=== PATIENT | male | born 1950 | race Caucasian/White ===

== ENCOUNTER 2018-05-20 12:26 | Emergency (ER) | payer OTHER, SELFPAY ==
[2018-05-20] VITALS (52 sets, daily range): BP systolic 132–174; BP diastolic 68–87; PULSE 98–113; RESP 8–27; TEMP 36.6; O2SAT 89–98
--- NOTE | 2018-05-20 13:03 | NUR.NOTE ---
Pt. placed on cardiac and resp. monitor.
--- NOTE | 2018-05-20 13:17 | DI.RAD_ITS ---
SYMPTOM/DIAGNOSIS: COUGH, ? PNEUMONIA PA AND LATERAL CHEST: The heart is at the upper limits of normal in size. The lungs are grossly clear. No pleural effusion is seen. CONCLUSION: No evidence of acute disease.
--- NOTE | 2018-05-20 13:20 | W.ED.GENAD ---
Discharge Plan Disposition Patient Disposition: AGAINST MEDICAL ADVICE Condition: Stable Discharge Details Chief Complaint: RespSymp Clinical Impression: Cough, Hypoxia, Bronchitis Primary Care Provider: None,None ED Provider: Angie Bey Home Meds and New Rx's Prescriptions: New prednisone 50 mg tablet 50 mg PO DAILY 5 Days Qty: 5 RF: 0 metoprolol succinate 50 mg tablet extended release 24 hr 50 mg PO DAILY Qty: 30 RF: 0 Continue atorvastatin 10 mg Tablet 10 mg PO DAILY RF: 0 aspirin 325 mg Tablet 325 mg PO DAILY RF: 0 metoprolol succinate 50 mg Tablet Extended Release 24 Hr 50 mg PO DAILY RF: 0 warfarin 7.5 mg Tablet 1 tab PO DAILY RF: 0 clopidogrel 75 mg Tablet 75 mg PO DAILY RF: 0 amlodipine-benazepril 5-10 mg Capsule 1 tab PO DAILY RF: 0 Discharge Instructions Instructions: Acute Bronchitis (ED), Acute Cough (ED) Additional Instructions: Your INR level is low and you may still have a pulmonary embolism as the CT chest was not adequate today. Please take 10 mg Coumadin tomorrow morning and return to the emergency department tomorrow morning for a repeat CT scan of your chest. Return immediately to the emergency department at anytime for any worsening or new concerning symptoms Discharge Data Discharge Physician: Angie Bey Medical Decision Making 67-year-old male with a history of protein S deficiency on Coumadin, hypertension and 2 cardiac stents who presents with fevers, dry cough with chest congestion and occasional shortness of breath for the past 9 days. Denies any chest pain. States he has been taking his Coumadin regularly. Patient also states that he has missed 4 days of metoprolol over the past few days due to running out. Blood pressure mildly hypertensive, heart rate 100s-110s. Oxygen saturation 93% on room air. Normal respiratory rate and temperature. Patient able to speak in full sentences and appears nontoxic. Diffuse wheezing and rhonchi throughout. No lower extremity edema. Differential diagnosis includes bronchitis, pneumonia. Less likely ACS as no complaint of chest pain and more c/o cough. Pt refusing labs and agreeable to CXR, EKG. 1420 --patient denies any relief after first neb treatment. Will order another neb treatment. Patient now admits to missing a few doses of his Coumadin. I am concerned about a possible pulmonary embolism. Pt now agreeable to workup. Will place an IV, bolus IV fluids, labs, CT chest. EKG notes a rate of 111, sinus tachycardia, no acute ST elevation or depression, QTC 457, QRS 82. 1700 --labs reviewed and note normal white blood cell count, hemoglobin. Troponin negative. INR is subtherapeutic at 1.3. Chest x-ray negative. 1720 --CT noted suboptimal evaluation of pulmonary arteries but no obvious PE. Recommend VQ scan if still high clinical concern. Discussed with radiology and they would not recommend repeat CT twice within 24 hours. Will plan for VQ scan and d/w radiology. Patient is agreeable. 191 --Unable to reach [facility] for nuc med. D/w pt and he is refusing admission or transfer to [facility] for VQ scan. Risks of and disability due to a serious pathology were explained to patient fully understands and is still refusing to stay. He demonstrates capacity to make decisions. Will give pt a dose of his metoprolol here as well as a dose of lovenox 1mg/kg SC. Patient states he took 10 mg Coumadin p.o. this morning. Pt was instructed to return here tomorrow morning for repeat CT chest - CT chest order placed. We will plan for recheck INR tomorrow. Prescription for prednisone and refill for metoprolol given. Pt instructed to take 10mg coumadin tomorrow morning and return to ED. HPI General Mode of arrival: ambulatory. Date/Time Provider Initiated Documentation: 05/20/18 12:52. Limitations to Documentation: no limitations. Information obtained by: patient. HPI Narrative: Patient is a 67-year-old male who presents to the ED with a complaint of cold symptoms for 9 days. Patient admits to dry cough with chest congestion, tactile fevers, and occasional shortness of breath. He denies any chest pain, recent antibiotics or recent hospital admission. States he has been taking Tylenol and [place] without relief. Patient states he is from [place] and is visiting here til next month. 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 Social history: Denies tobacco, alcohol or drugs Meds: Amlodipine-Benzapril, ASA, Lipitor, Plavix, Toprol, Warfarin Allergies: NKDA PCP: Pt lives in [place] Related Data Home Medications Medication Instructions Recorded Confirmed amlodipine-benazepril 1 tab PO DAILY 05/20/18 05/20/18 aspirin 325 mg PO DAILY 05/20/18 05/20/18 atorvastatin 10 mg PO DAILY 05/20/18 05/20/18 clopidogrel 75 mg PO DAILY 05/20/18 05/20/18 metoprolol succinate 50 mg PO DAILY 05/20/18 05/20/18 metoprolol succinate 50 mg PO DAILY #30 tab 05/20/18 prednisone 50 mg PO DAILY 5 Days #5 tab 05/20/18 warfarin 1 tab PO DAILY 05/20/18 05/20/18 Previous Rx's Medication Instructions Recorded metoprolol succinate 50 mg PO DAILY #30 tab 05/20/18 prednisone 50 mg PO DAILY 5 Days #5 tab 05/20/18 Allergies Allergy/AdvReac Type Severity Reaction Status Date / Time No Known Allergies Allergy Unverified 05/20/18 12:40 General Stated Complaint: RespSymp YANNI: 3 Review of Systems Review of Systems All systems reviewed & are unremarkable except as noted in HPI and below Constitutional Denies chills, Denies excessive sweating, Denies fatigue, Denies fever(s), Denies weakness and Denies weight loss Eyes Reports system reviewed and no additional complaints, except as docu and Denies blurry vision ENT Denies vertigo, Denies dizziness, Denies otalgia, Denies nasal congestion, Denies sore throat and Denies throat swelling Cardiovascular Denies chest pain, Denies syncope, Denies rapid heart rate and Reports dyspnea Respiratory Reports chest congestion, Reports cough and Reports dyspnea Gastrointestinal Denies abdominal pain, Denies diarrhea and Denies vomiting Genitourinary Denies hematuria, Denies dysuria and Denies flank pain Musculoskeletal Denies back pain and Denies joint swelling Integumentary/Breasts Denies lesions and Denies rash Neurologic Denies behavioral changes, Denies confusion, Denies vertigo, Denies dizziness, Denies syncope and Denies weakness Psychiatric Denies behavioral changes, Denies confusion and Denies depression Endocrine Denies excessive sweating and Denies fatigue Hematologic/Lymphatic Denies easy bruising and Denies lymphadenopathy Allergic/Immunologic Denies throat swelling PFSH Social History Smoking/Tobacco Use Status: Never Exam Const General: cooperative and healthy appearing Orientation: alert and awake HENMT Head: normal to inspection Ears: hearing grossly normal bilaterally, external ears normal and TM's normal bilaterally General nose exam: external nose normal Face and sinus: normal facial exam Mouth: oral mucosae normal Teeth and gingiva: dentition normal Throat: posterior oropharynx normal Eyes General: appearance normal, both eyes and all related structures Eyelids: eyelids normal EOM: EOM intact bilaterally Neck Neck: normal visual inspection Lymphatic: no lymphadenopathy noted Chest Chest: normal inspection of the chest Resp Effort & Inspection: normal respiratory effort and able to speak in complete sentences Auscultation: rhonchi upper bilaterally and lower bilaterally and wheezes scattered wheezes Cardio Rate: tachycardic Rhythm: regular rhythm GI Inspection: normal to inspection Palpation: soft, not firm, no guarding, no hepatosplenomegaly, no masses and nontender Auscultation: normal bowel sounds Skin General skin exam: no rashes or lesions noted Neuro General: alert and awake Cognition: normal cognition Speech: speech normal Gait: normal gait Motor: muscle tone normal throughout Sensory Exam: no sensory deficits noted Extrem General: normal to inspection, full ROM, normal capillary refill and no edema Psych Appearance: grossly normal Mental Status: mental status grossly normal Speech and Movement: speech and movement normal Affect: normal affect Thought Process: normal Course Vital Signs Temperature 97.9 F 05/20/18 12:35 Pulse 110 H 05/20/18 12:35 Respiratory Rate 16 05/20/18 12:35 Blood Pressure 165/87 H 05/20/18 12:35 Pulse Oximetry 93 L 05/20/18 12:35 Temperature 97.9 F 05/20/18 12:35 Temperature Source Skin 05/20/18 12:35 Pulse 110 H 05/20/18 12:35 Respiratory Rate 16 05/20/18 12:35 Respiratory Effort 05/20/18 13:04 Respiratory Depth Normal 05/20/18 13:04 Blood Pressure 165/87 H 05/20/18 12:35 Blood Pressure Position Sitting 05/20/18 12:35 Pulse Oximetry 93 L 05/20/18 12:35 Oxygen Delivery Method Room Air 05/20/18 12:35 Oxygen Flow Rate 0 05/20/18 12:35 Pain Level 0 05/20/18 12:35
[2018-05-20] MEDS: Albuterol/Ipratropium 3 ML UPD VIAL UPD (13:38)
[2018-05-20] MEDS: predniSONE 20 MG TAB 60 MG PO (13:38)
--- NOTE | 2018-05-20 14:34 | DI.CT_ITS ---
SYMPTOMS/DIAGNOSIS: COUGH, SHORTNESS OF BREATH, ? PE PE CHEST CT: CT angiography was performed with multi slice acquisition and multi planar and 3D reconstruction. The study was carried out according to the usual protocol with an intravenous injection of 100 cc's of Omnipaque 350. There is no PE. The timing of the bolus is suboptimal and the possibility of peripheral emboli could not be entirely excluded. A 4 mm pulmonary nodule is noted in the right upper lobe and there are several noncalcified nodules in the left lower lobe. The largest of which approaches about 9 mm. The aorta is intact with note made of mild atherosclerotic changes. There is no pneumothorax or pleural effusion. Incidental note is made of coronary artery calcifications. A rather small hiatus hernia is identified. Note is also made of mild distal esophageal wall thickening raising the possibility of esophagitis. The finding to be correlated with the patient's clinical status. The patient is status post cholecystectomy. There is no lymphadenopathy. There is no bony abnormality. The soft tissues are intact. SUMMARY: 1. There is as described above no evidence of pulmonary embolic disease recognized on this study. If there is high clinical suspicion regarding a pulmonary embolus, then a VQ scan could be obtained for further review. 2. Note is also incidentally made of esophageal wall thickening, question esophagitis. 3. There is a 4 mm right upper lobe nodule and several noncalcified pulmonary nodules in the left lower lobe are identified. The largest up to 9 mm.
[2018-05-20] MEDS: Albuterol 2.5 MG/3 ML INH SOLN VIAL UPD (14:48)
[2018-05-20 14:51] LABS: Abs Immature Grans 0.02 k/cumm (0.0-0.09); Absolute Basophil Count 0.03 k/cumm (0.0-0.2); Absolute Eosinophil Count 0.11 k/cumm (0.0-0.7); Absolute Lymphocyte Count 2.27 k/cumm (1.2-3.4); Absolute Monocyte Count 1.23 k/cumm (0.11-0.7); Absolute Neutrophil Count 5.91 k/cumm (1.2-6.7); Basophils % 0.3; Eosinophils % 1.1; HGB 14.7 g/dL (13.5-17.5); Immature Grans % 0.2; Lymphocytes % 23.7; Mean Corp. HGB Concentration 35.9 g/dL (32.0-36.0); Mean Corpuscular Hemoglobin 34.3 pg (27.0-33.0); Mean Corpuscular Volume 95.6 fL (80-95); Mean Platelet Volume 8.9 fL (8.0-11.0); Monocytes % 12.9; Neutrophils % 61.8; Platelet Count 186 x1000/uL (130-400); RBC 4.29 m/cumm (4.50-6.00); RBC Distribution Width 13.4 % (11.8-14.1); White Blood Cell Count 9.57 k/cumm (4.4-10.8)
[2018-05-20 15:05] LABS: INR 1.3 (1.0-3.5); PTT Activated 27.4 sec (21.0-31.4); Prothrombin Time 12.5 sec (9.3-10.8)
[2018-05-20 15:07] LABS: ALT 54 U/L (12-78); AST 33 U/L (15-37); Albumin 3.5 g/dL (3.4-5.0); Alkaline Phosphatase 59 U/L (46-116); Anion Gap 8.5 mmol/L (3-11); BUN 20 mg/dL (7-18); Bilirubin, Total 0.8 mg/dL (0.2-1.0); CO2 26.5 mmol/L (21.0-32.0); CREATININE 1.19 mg/dL (0.70-1.30); Calcium 8.9 mg/dL (8.5-10.1); Chloride 99 mmol/L (98-107); Glucose 174 mg/dL (70-100); Magnesium 1.8 mg/dL (1.8-2.4); Potassium 3.7 mmol/L (3.5-5.1); Sodium 134 mmol/L (136-145); Total Protein 7.9 g/dL (6.4-8.2)
[2018-05-20 15:10] LABS: Troponin I < 0.02 ng/mL (0.00-0.06)
[2018-05-20] MEDS: Omnipaque 350 MG/ML 100 ML BTL IJ (15:57)
--- NOTE | 2018-05-20 17:07 | DI.VRAD_ITS ---
EXAM: CT Angiography Chest With Intravenous Contrast EXAM DATE/TIME: 05/20/2018 2:36 PM CLINICAL HISTORY: 67 years old, male; Signs and symptoms; Cough and shortness of breath; Prior surgery; Patient HX: Cough, SOB; Additional info: R/O pe TECHNIQUE: Axial computed tomographic angiography images of the chest with intravenous contrast using CT angiography protocol. Coronal and sagittal reformatted images were created and reviewed. MIP reconstructed images were created and reviewed. COMPARISON: CR XR CHEST 2V PA LATERAL 05/20/2018 2:08 PM FINDINGS: Pulmonary arteries: No definite pulmonary embolism identified on these images. Bolus timing insufficient for definitive exclusion of peripheral pulmonary emboli. Aorta: Aorta demonstrates mild atherosclerotic calcification. Lungs: 4 mm pulmonary nodule right upper lobe. Several noncalcified pulmonary nodules left lower lobe, largest 9 mm. Pleural space: Normal. No pneumothorax. No pleural effusion. Heart: Coronary artery calcifications are noted. Mediastinum: Small hiatal hernia. Mild distal esophageal wall thickening, suggestive of esophagitis. Correlate clinically. Gallbladder and bile ducts: Gallbladder surgically absent. Lymph nodes: Unremarkable. No enlarged lymph nodes. Bones/joints: Unremarkable. No acute fracture. Soft tissues: Unremarkable. IMPRESSION: 1. Suboptimal evaluation of the pulmonary arteries. No PE identified on this study. If there is still high clinical concern, consider a VQ scan. 2. Mild distal esophageal wall thickening, suggestive of esophagitis. Correlate clinically. 3. 4 mm pulmonary nodule right upper lobe. Several noncalcified pulmonary nodules left lower lobe, largest 9 mm. Dictated and Authenticated by: Johnny Pulido MD. Ordering:ELMA GARCIA MD
[2018-05-20] MEDS: Metoprolol 50 MG TAB PO ×2 (19:41→20:14)
[2018-05-20] MEDS: Enoxaparin 100 MG/ML SYR SC (19:55)
== END 2018-05-20 20:16 | disposition left against medical advice (07) ==
LOC: ER 19:51
PROVIDERS: Emergency Provider Physician Assistant
DX: J20.9 Acute bronchitis, unspecified (principal); R09.02 Hypoxemia; I10 Essential (primary) hypertension; Z79.01 Long term (current) use of anticoagulants; Z95.5 Presence of coronary angioplasty implant and graft
CPT/HCPCS: 36415; 71275; 80053; 93005; 94640; 96360; 99285; 71046; 83735; 84484; 85025; 85610; 85730; 93010; J1650; J3490; J7512; J7613; J7620

== ENCOUNTER 2018-05-21 10:03 | Emergency (ER) | payer OTHER, SELFPAY ==
[2018-05-21] VITALS (9 sets, daily range): BP systolic 127–140; BP diastolic 74–85; PULSE 67–74; RESP 19–24; TEMP 36.7; O2SAT 93–95
--- NOTE | 2018-05-21 10:37 | W.ED.GENAD ---
Discharge Plan Disposition Patient Disposition: HOME Discharge Details Chief Complaint: RespSymp Clinical Impression: Subtherapeutic international normalized ratio (INR), Acute bronchitis Primary Care Provider: None,None ED Provider: Joseph Degorot Home Meds and New Rx's Prescriptions: New doxycycline hyclate 100 mg tablet 100 mg PO BID Qty: 11 RF: 0 enoxaparin [Lovenox] 80 mg/0.8 mL syringe 160 mg SC DAILY Qty: 22.4 RF: 0 Continue atorvastatin 10 mg Tablet 10 mg PO DAILY RF: 0 aspirin 325 mg Tablet 325 mg PO DAILY RF: 0 clopidogrel 75 mg Tablet 75 mg PO DAILY RF: 0 amlodipine-benazepril 5-10 mg Capsule 1 tab PO DAILY RF: 0 metoprolol succinate 50 mg tablet extended release 24 hr 50 mg PO DAILY Qty: 30 RF: 0 omega 7-zbk-hxj-fish oil [Fish Oil] 1,000 mg (120 mg-180 mg) Capsule 1 cap PO DAILY RF: 0 naproxen sodium [Aleve] 220 mg Capsule 1 tab PO BID RF: 0 Blood Pressure Health Caps 1 cap PO DAILY RF: 0 Discontinued warfarin 7.5 mg Tablet 1 tab PO DIRECTED RF: 0 Discharge Instructions Instructions: Doxycycline (By mouth), Acute Bronchitis (ED) Additional Instructions: STOP TAKING COUMADIN. Take lovenox as prescribed. Take doxycyline 100mg twice a day. Be sure to complete the full course. Please follow-up at [facility] hemat[facility] antico[place] [facility] . Please contact your primary care physician to arrange follow-up. Return to the ER for any worsening or new concerning symptoms. Discharge Data Discharge Date/Time-TO BE ENTERED AT DEPARTURE: 05/21/18 15:14 Medical Decision Making 10:40 -- 67yo m with multiple medical problems including history of coronary artery disease status post stent, DVT, protein S deficiency, now on Coumadin, who presents with 10 days of cough, now productive of yellow/brown sputum and associated intermittent SOB. Patient seen here yesterday in ED, found to have subtherapeutic INR and had CT scan yesterday did not show an obvious pulmonary embolism but was noted to be suboptimal in contrast administration and additional diagnostic testing was recommended as needed to rule out pulmonary embolism. He left AMA with plan to return today. He took increased dose of coumadin yesterday and today. No hemoptysis. No chest pain. No hypoxia. No tachycardia. No clinical signs and symptoms of DVT, PE is not my #1 diagnosis, patient has had no recent immobilization or surgery, no malignancy within the past 6 months. Patient has a productive cough and subjective fevers. I believe he has bronchitis or early pneumonia. Will treat with doxycycline. Wells criteria applied and patient low risk for PE. Will check ddimer. Plan discussed with patient who agrees with blood testing prior to proceeding with additional imaging. -- Regarding knee injury: suspect MCL sprain, consider medial meniscal tear. Symptoms improving. I recommended continued supportive care and if pain persists over the next 1 week that he follow-up with orthopedics. -- Labs reviewed: age adjusted ddimer neg (<690); leukocytosis noted; INR remains subtherapeutic. Will give prophylactic lovenox injection. 12:00 -- Given subtherapeutic INR and comorbidities I recommended admission. Patient provided informed refusal. Has decisional making capacity. Spoke with [facility] consulting database administrator and he notes [facility] not [facility] and not able to arrange follow-up tomorrow. Spoke with [facility] care management and unable to ensure outpatient follow-up tomorrow. 12:45 -- Spoke with returned case inspector transitional living specialist at [facility] who does not recommend switching to DOAC at this time. Recommends bridging to increased coumadin dosing with lovenox and check regular INR vs stop coumadin, take lovenox and follow-up in clinic for discussion regarding possible starting DOAC. Patient informed of recommendations and requests lovenox, stop coumadin and follow-up at [facility]. Will order 1.5mg/kg lovenox daily. Will continue doxycycline for bronchitis/early PNA. Disposition decision was made weighing the risks and benefits of hospitalization versus outpatient treatment, the risk for further decompensation, and the patient's wishes. The patient was stable and requested discharge. Prior to discharge, my usual and customary return precautions were reviewed with the patient - this included follow-up instructions and reason to return to the emergency department if condition worsens, does not improve as expected, or other new concerns arise or at anytime for further care. Medical Records Medical records reviewed: Yes I reviewed the patient's medical records. I reviewed documentation by Dr. Bey from 05/20/18: 67-year-old male with a history of protein S deficiency on Coumadin, hypertension and 2 cardiac stents who presents with fevers, dry cough with chest congestion and occasional shortness of breath for the past 9 days. Denies any chest pain. States he has been taking his Coumadin regularly. Patient also states that he has missed 4 days of metoprolol over the past few days due to running out. Blood pressure mildly hypertensive, heart rate 100s-110s. Oxygen saturation 93% on room air. Normal respiratory rate and temperature. Patient able to speak in full sentences and appears nontoxic. Diffuse wheezing and rhonchi throughout. No lower extremity edema. Differential diagnosis includes bronchitis, pneumonia. Less likely ACS as no complaint of chest pain and more c/o cough. Pt refusing labs and agreeable to CXR, EKG. 1420 --patient denies any relief after first neb treatment. Will order another neb treatment. Patient now admits to missing a few doses of his Coumadin. I am concerned about a possible pulmonary embolism. Pt now agreeable to workup. Will place an IV, bolus IV fluids, labs, CT chest. EKG notes a rate of 111, sinus tachycardia, no acute ST elevation or depression, QTC 457, QRS 82. 1700 --labs reviewed and note normal white blood cell count, hemoglobin. Troponin negative. INR is subtherapeutic at 1.3. Chest x-ray negative. 1720 --CT noted suboptimal evaluation of pulmonary arteries but no obvious PE. Recommend VQ scan if still high clinical concern. Discussed with radiology and they would not recommend repeat CT twice within 24 hours. Will plan for VQ scan and d/w radiology. Patient is agreeable. 1915 --Unable to reach tech for nuc med. D/w pt and he is refusing admission or transfer to [facility] for VQ scan. Risks of and disability due to a serious pathology were explained to patient fully understands and is still refusing to stay. He demonstrates capacity to make decisions. Will give pt a dose of his metoprolol here as well as a dose of lovenox 1mg/kg SC. Patient states he took 10 mg Coumadin p.o. this morning. Pt was instructed to return here tomorrow morning for repeat CT chest - CT chest order placed. We will plan for recheck INR tomorrow. Prescription for prednisone and refill for metoprolol given. Pt instructed to take 10mg coumadin tomorrow morning and return to ED. CT c hest 05/20/18 as interpreted by radiology: FINDINGS: Pulmonary arteries: No definite pulmonary embolism identified on these images. Bolus timing insufficient for definitive exclusion of peripheral pulmonary emboli. Aorta: Aorta demonstrates mild atherosclerotic calcification. Lungs: 4 mm pulmonary nodule right upper lobe. Several noncalcified pulmonary nodules left lower lobe, largest 9 mm. Pleural space: Normal. No pneumothorax. No pleural effusion. Heart: Coronary artery calcifications are noted. Mediastinum: Small hiatal hernia. Mild distal esophageal wall thickening, suggestive of esophagitis. Correlate clinically. Gallbladder and bile ducts: Gallbladder surgically absent. Lymph nodes: Unremarkable. No enlarged lymph nodes. Bones/joints: Unremarkable. No acute fracture. Soft tissues: Unremarkable. IMPRESSION: 1. Suboptimal evaluation of the pulmonary arteries. No PE identified on this study. If there is still high clinical concern, consider a VQ scan. 2. Mild distal esophageal wall thickening, suggestive of esophagitis. Correlate clinically. 3. 4 mm pulmonary nodule right upper lobe. Several noncalcified pulmonary nodules left lower lobe, largest 9 mm. HPI General Date/Time Provider Initiated Documentation: 05/21/18 10:07. Limitations to Documentation: no limitations. Information obtained by: patient. HPI Narrative: 67yo m with multiple medical problems including history of coronary artery disease status post stent, HTN, DVT, protein S deficiency, now on Coumadin, who presents with 10 days of cough, now productive of yellow/brown sputum and associated intermittent SOB. Symptoms are moderate to severe - worse last night. Denies chest pain. No new leg swelling or pain. Patient seen here yesterday in ED, found to have subtherapeutic INR and had CT scan yesterday did not show an obvious pulmonary embolism but was noted to be suboptimal in contrast administration and additional diagnostic testing was recommended as needed to rule out pulmonary embolism. He left AMA with plan to return today. Patient also notes that he slipped and fell and twisted his left knee 1 month ago and has medial left knee pain over the past month. Pain is improving and now mild, worse with certain positions. Related Data Home Medications Medication Instructions Recorded Confirmed amlodipine-benazepril 1 tab PO DAILY 05/20/18 05/21/18 aspirin 325 mg PO DAILY 05/20/18 05/21/18 atorvastatin 10 mg PO DAILY 05/20/18 05/21/18 clopidogrel 75 mg PO DAILY 05/20/18 05/21/18 metoprolol succinate 50 mg PO DAILY #30 tab 05/20/18 05/21/18 Blood Pressure Health Caps 1 cap PO DAILY 05/21/18 05/21/18 doxycycline hyclate 100 mg PO BID #11 tab 05/21/18 enoxaparin [Lovenox] 160 mg SC DAILY #22.4 ml 05/21/18 naproxen sodium [Aleve] 1 tab PO BID 05/21/18 05/21/18 omega 1-rbj-mbk-fish oil [Fish Oil] 1 cap PO DAILY 05/21/18 05/21/18 Previous Rx's Medication Instructions Recorded metoprolol succinate 50 mg PO DAILY #30 tab 05/20/18 doxycycline hyclate 100 mg PO BID #11 tab 05/21/18 enoxaparin [Lovenox] 160 mg SC DAILY #22.4 ml 05/21/18 Allergies Allergy/AdvReac Type Severity Reaction Status Date / Time No Known Allergies Allergy Unverified 05/21/18 10:15 General Stated Complaint: RespSymp YANNI: 3 Review of Systems Review of Systems All systems reviewed & are unremarkable except as noted in HPI and below Constitutional Denies chills, Reports fatigue and Reports fever(s) Cardiovascular Denies chest pain and Denies lightheadedness Respiratory Reports cough, Denies hemoptysis and Reports wheezing Endocrine Reports fatigue Allergic/Immunologic Reports wheezing PFSH Protein S deficiency (Acute) CAD (coronary artery disease) (Chronic) DVT (deep venous thrombosis) (Chronic) HTN (hypertension) (Chronic) Social History Smoking/Tobacco Use Status: Never Exam Const General: cooperative and no acute distress [facility] Head: normocephalic and atraumatic Mouth: moist mucous membranes Eyes Conjunctivae: normal conjunctivae Sclera: normal sclerae EOM: EOM intact bilaterally Neck Neck: trachea midline and supple Resp Auscultation: clear to auscultation bilaterally, no rales, no rhonchi and no wheezes Cardio Jugular venous pressure: no JVD Rate: regular rate and not tachycardic Rhythm: regular rhythm Heart Sounds: no murmurs GI Palpation: soft, not firm, no guarding, no masses, not rigid and nontender Skin General skin exam: no rashes or lesions noted Neuro General: alert, awake, oriented x3 and tone normal Extrem General: no calf tenderness bilaterally and edema Laterality: left (mild (patient notes chronic)) Left lower extremity: knee Details: tenderness Location: of the medial joint line and knee ligament exam normal; no swelling Psych Appearance: grossly normal Mental Status: mental status grossly normal Speech and Movement: speech and movement normal Course Vital Signs Temperature 36.7 C 05/21/18 10:10 Pulse 74 05/21/18 10:10 Respiratory Rate 20 05/21/18 10:10 Blood Pressure 137/82 05/21/18 10:10 Pulse Oximetry 95 05/21/18 10:10 Temperature 36.7 C 05/21/18 10:10 Temperature Source Skin 05/21/18 10:10 Pulse 74 05/21/18 10:10 Respiratory Rate 20 05/21/18 10:10 Respiratory Effort 05/21/18 10:13 Blood Pressure 137/82 05/21/18 10:10 Pulse Oximetry 95 05/21/18 10:10 Oxygen Delivery Method Room Air 05/21/18 10:10 Oxygen Flow Rate 0 05/21/18 10:10 Pain Level 0 05/21/18 10:10
[2018-05-21 10:58] LABS: Abs Immature Grans 0.03 k/cumm (0.0-0.09); Absolute Basophil Count 0.01 k/cumm (0.0-0.2); Absolute Eosinophil Count 0.01 k/cumm (0.0-0.7); Absolute Monocyte Count 0.87 k/cumm (0.11-0.7); Absolute Neutrophil Count 10.34 k/cumm (1.2-6.7); Basophils % 0.1; Eosinophils % 0.1; HCT 38.2 % (40.0-50.0); HGB 13.8 g/dL (13.5-17.5); Immature Grans % 0.2; Lymphocytes % 7.2; Mean Corp. HGB Concentration 36.1 g/dL (32.0-36.0); Mean Corpuscular Hemoglobin 34.4 pg (27.0-33.0); Mean Corpuscular Volume 95.3 fL (80-95); Mean Platelet Volume 8.9 fL (8.0-11.0); Monocytes % 7.2; Neutrophils % 85.2; Platelet Count 195 x1000/uL (130-400); RBC 4.01 m/cumm (4.50-6.00); RBC Distribution Width 13.4 % (11.8-14.1); White Blood Cell Count 12.14 k/cumm (4.4-10.8)
[2018-05-21 11:02] LABS: Absolute Lymphocyte Count 0.87 k/cumm (1.2-3.4)
[2018-05-21 11:08] LABS: INR 1.3 (1.0-3.5); Prothrombin Time 12.7 sec (9.3-10.8)
[2018-05-21 11:10] LABS: ALT 51 U/L (12-78); AST 42 U/L (15-37); Albumin 3.4 g/dL (3.4-5.0); Alkaline Phosphatase 55 U/L (46-116); Anion Gap 10.9 mmol/L (3-11); BUN 21 mg/dL (7-18); Bilirubin, Total 0.9 mg/dL (0.2-1.0); CO2 25.1 mmol/L (21.0-32.0); CREATININE 1.23 mg/dL (0.70-1.30); Calcium 8.6 mg/dL (8.5-10.1); Chloride 96 mmol/L (98-107); Estimated GFR 58.34 (mL/min/1.73m2); Glucose 205 mg/dL (70-100); Potassium 4.5 mmol/L (3.5-5.1); Sodium 132 mmol/L (136-145); Total Protein 7.7 g/dL (6.4-8.2)
[2018-05-21 11:27] LABS: D-Dimer 617 ng/mlFEU (<500)
[2018-05-21] MEDS: Doxycycline Hyclate 100 MG CAP PO (12:23)
[2018-05-21] MEDS: Enoxaparin 80 MG/0.8 ML SYR 160 MG SC (14:52)
[2018-05-21] MEDS: Inhaler, Assist Device 1 EACH MC (14:55)
[2018-05-21] MEDS: Doxycycline Hyclate 100 MG CAP 200 MG PO (14:55)
--- NOTE | 2018-05-22 12:40 | PDOC.ERCMPRO ---
- If Service Date Differs Date of service: 05/22/18 Time of Service: 12:40 Care Management Progress Note CM contacted the patient to follow up ED visit and arrange referral to [facility] [place]. CM faxed the referral to [facility] at [phone] and spoke with the application coordinator. Ankur will need Lovenox injections through [facility] infusion room over the weekend until his mediation is approved through his medicare. KADE contacted and reviewed the plan. Ankur has been updated with the plan and agrees, CM to continue to arrange appointment with [facility]. Ankur will return to his home state mid May and does not want a PCP in this area. KADE spoke with Laura RECIO with infusion services and she will set patient up for daily injections.
--- NOTE | 2018-05-22 12:48 | CMPROGNOTE_ITS ---
- If Service Date Differs Date of service: 05/22/18 Time of Service: 12:40 Care Management Progress Note CM contacted the patient to follow up ED visit and arrange referral to [facility] for [place]. CM faxed the referral to [facility] at [phone] and spoke with the customer relations coordinator. Ankur will need Lovenox injections through [facility] infusion room over the weekend until his mediation is approved through his medicare. KADE contacted and reviewed the plan. Ankur has been updated with the plan and agrees, CM to continue to arrange appointment with [facility]. Ankur will return to his home state mid May and does not want a PCP in this area. KADE spoke with Laura RECIO with infusion services and she will set patient up for daily injections.
== END 2018-05-21 15:14 | disposition home or self-care (01) ==
PROVIDERS: Emergency Provider Student in an Organized Health Care Education/Training Program
DX: J20.9 Acute bronchitis, unspecified (principal); R79.1 Abnormal coagulation profile; T45.515A Adverse effect of anticoagulants, initial encounter; D53.0 Protein deficiency anemia; Z79.01 Long term (current) use of anticoagulants; R91.1 Solitary pulmonary nodule; M25.562 Pain in left knee; Z53.29 Procedure and treatment not carried out because of patient's decision for other reasons; I10 Essential (primary) hypertension
CPT/HCPCS: 36415; 80053; 96372; 99284; 85025; 85379; 85610; J1650

== ENCOUNTER 2018-05-26 01:32 | Outpatient (RCR) | payer OTHER, SELFPAY ==
[2018-05-22] MEDS: Enoxaparin 80 MG/0.8 ML SYR 160 MG SC (14:23)
[2018-05-23] MEDS: Enoxaparin 80 MG/0.8 ML SYR 160 MG SC (13:23)
[2018-05-24] MEDS: Enoxaparin 80 MG/0.8 ML SYR 160 MG SC (13:21)
== END 2018-05-29 23:59 | disposition home or self-care (01) ==
LOC: INF 01:32
PROVIDERS: Visit Provider Student in an Organized Health Care Education/Training Program
DX: R79.1 Abnormal coagulation profile (principal); T45.515A Adverse effect of anticoagulants, initial encounter; Z79.01 Long term (current) use of anticoagulants
CPT/HCPCS: 96372; J1650

== ENCOUNTER 2019-06-18 06:47 | Emergency (ER) | payer OTHER, SELFPAY ==
[2019-06-18 06:55] VITALS: BP 212/104; PULSE 101; RESP 16; TEMP 36.6; O2SAT 96
--- NOTE | 2019-06-18 06:57 | ED.GENADUL_ITS ---
Discharge Plan Disposition Patient Disposition: HOME Discharge Details Chief Complaint: Vascular Clinical Impression: Hematoma Primary Care Provider: None,None ED Provider: Robert Vasques Home Meds and New Rx's Prescriptions: New oxycodone-acetaminophen [Percocet] 5-325 mg tablet 1 tab PO Q8H PRN (Reason: pain) Qty: 10 RF: 0 No Action atorvastatin 10 mg Tablet 10 mg PO DAILY RF: 0 aspirin 325 mg Tablet 325 mg PO DAILY RF: 0 clopidogrel 75 mg Tablet 75 mg PO DAILY RF: 0 amlodipine-benazepril 5-10 mg Capsule 1 tab PO DAILY RF: 0 metoprolol succinate 50 mg tablet extended release 24 hr 50 mg PO DAILY Qty: 30 RF: 0 omega 4-wuh-roo-fish oil [Fish Oil] 1,000 mg (120 mg-180 mg) Capsule 1 cap PO DAILY RF: 0 naproxen sodium [Aleve] 220 mg Capsule 1 tab PO BID RF: 0 Blood Pressure Health Caps 1 cap PO DAILY RF: 0 doxycycline hyclate 100 mg tablet 100 mg PO BID Qty: 11 RF: 0 enoxaparin [Lovenox] 80 mg/0.8 mL syringe 160 mg SC DAILY Qty: 22.4 RF: 0 Xarelto 10 mg Tablet RF: 0 Discharge Instructions Instructions: Hematoma (ED) Additional Instructions: Please return to the emergency department immediately for increasing pain swelling change in sensation or other concern. We have provided a referral for a new primary care physician please call the number provided to you can establish care Discharge Data Discharge Date/Time-TO BE ENTERED AT DEPARTURE: 06/18/19 08:55 Medical Decision Making <Otf Castellanos MD - Last Filed: 06/21/19 23:06> Patient has been taking Tylenol for his pain but it is not helping. He has taken 1 or 2 doses of ibuprofen but knows he should not be taking this chron ically due to his blood thinning medications. He is also very concerned that his leg has got worse rather than better over time. Suspect this is all soft tissue injury and hematoma but he is concerned of DVT. Blood pressure also elevated and may be related to discomfort and stress as he has been taking his medications religiously. Will give 1 Lortab here. Will obtain duplex ultrasound of right lower extremity. <Robert Vasques MD - Last Filed: 06/18/19 08:54> 68-year-old male past medical history of protein S deficiency with multiple DVTs and clots in the past presents 1 week after fall through a deck suffering a hematoma to his right lateral thigh patient says pain continues and was concerned for DVT. Ultrasound shows hematoma no DVT pain improved with treatment in emergency department repeat exam no increase in ecchymosis soft compartments strong distal pulses with full range of motion will discharge with Tylenol and Percocet for breakthrough pain PCP referral and strict return instructions for increasing pain swelling change in sensation or other concern. Patient hypertensive in the emergency department took his home meds just prior to discharge and will keep a blood pressure log and follow-up with primary care no evidence of endorgan damage. HPI <Otf Castellanos MD - Last Filed: 06/21/19 23:06> General Mode of arrival: ambulatory . Date/Time Provider Initiated Documentation: 06/18/19 06:54 . Limitations to Documentation: no limitations . Information obtained by: patient and RN notes reviewed . HPI Narrative: Patient presents to ED with right thigh pain and swelling. Patient has history of protein S deficiency with previous DVT in left leg, pulmonary embolus, mesenteric ischemia with bowel resection. He currently is on Xarelto, Plavix, aspirin. Last weekend he went through an opening in the porch injuring his right lower extremity. He had a large hematoma laterally. Subsequently is now having pain and swelling medially and anteriorly down to the knee. He has not been able to sleep for the last couple of days because of increased pain. It reminds him of the pain he had when he had a DVT. He has not missed any doses of his medications. However, he is concerned that he is developed DVT. He denies fever, chest pain, shortness of breath, other injury. He has been using Tylenol without relief. Related Data Home Medications Medication Instructions Recorded Confirmed amlodipine-benazepril 1 tab PO DAILY 05/20/18 06/18/19 aspirin 325 mg PO DAILY 05/20/18 06/18/19 atorvastatin 10 mg PO DAILY 05/20/18 06/18/19 clopidogrel 75 mg PO DAILY 05/20/18 06/18/19 metoprolol succinate 50 mg PO DAILY #30 tab 05/20/18 06/18/19 Blood Pressure Health Caps 1 cap PO DAILY 05/21/18 05/21/18 doxycycline hyclate 100 mg PO BID #11 tab 05/21/18 enoxaparin [Lovenox] 160 mg SC DAILY #22.4 ml 05/21/18 06/18/19 naproxen sodium [Aleve] 1 tab PO BID 05/21/18 06/18/19 omega 1-seb-wyx-fish oil [Fish Oil] 1 cap PO DAILY 05/21/18 06/18/19 oxycodone-acetaminophen [Percocet] 1 tab PO Q8H PRN #10 tab 06/18/19 rivaroxaban [Xarelto] mg 06/18/19 Previous Rx's Medication Instructions Recorded metoprolol succinate 50 mg PO DAILY #30 tab 05/20/18 doxycycline hyclate 100 mg PO BID #11 tab 05/21/18 enoxaparin [Lovenox] 160 mg SC DAILY #22.4 ml 05/21/18 oxycodone-acetaminophen [Percocet] 1 tab PO Q8H PRN #10 tab 06/18/19 Allergies Allergy/AdvReac Type Severity Reaction Status Date / Time No Known Allergies Allergy Unverified 06/18/19 06:58 General YANNI: 3 Review of Systems <Otf Castellanos MD - Last Filed: 06/21/19 23:06> Narrative: As documented in HPI otherwise negative as below. Const: no fever, chills, weakness Resp: no cough, SOB, pleuritic pain CV: no CP, diaphoresis, edema, syncope GI: no abdominal pain, nausea, vomiting, diarrhea Neuro: no headache, numbness, focal weakness, confusion PFSH <Otf Castellanos MD - Last Filed: 06/21/19 23:06> Medical History CAD (coronary artery disease) (Chronic) DVT (deep venous thrombosis) (Resolved) HTN (hypertension) (Chronic) Hypercholesterolemia (Chronic) Protein S deficiency (Chronic) Pulmonary embolism (Resolved) Surgical History History of heart artery stent (Chronic) Previous back surgery (Chronic) S/P cholecystectomy (Chronic) S/P small bowel resection (Chronic) Social History Smoking/Tobacco Use Status: Never Alcohol Intake: never Drug use: Never Do you feel safe at home: Yes Do you feel safe in your relationship?: Yes Exam <Otf Castellanos MD - Last Filed: 06/21/19 23:06> Narrative Exam Narrative: Vitals: Afebrile. Markedly elevated blood pressure. Mild tachycardia. Normal room air pulse ox. Const: WDWN elderly male in NAD. HEENT: NC/AT. Normal facial exam. Eyes: Normal conjunctiva and sclera. Neck: Supple. Trachea midline. Lungs: Normal respiratory effort. Lungs are clear. Cor: RRR with systolic murmur. Good distal pulses. Neuro: A+O x 3. Speech and mentation normal. No gross motor or sensory de ficits. Ext: Chronic left lower extremity swelling and edema which is unchanged. Right lateral thigh tenderness, firm and bruising. Increased swelling distal thigh area into the knee. No bony tenderness. Normal range of motion of the knee. Skin: Warm and dry. Sign Out <Otf Castellanos MD - Last Filed: 06/21/19 23:06> Sign Out Data: Sign Out Comment: pending U/S Last updated by Otf Castellanos MD at 06/18/19 07:51
[2019-06-18] MEDS: HYDROcodone 5/Acetaminophen 325 TAB PO (07:17)
--- NOTE | 2019-06-18 07:43 | DI.US_ITS ---
EXAM: US LOWER EXTREMITY VENOUS RT CLINICAL HISTORY: Pain/swelling, ON BLOOD THINNERS, SUSPECT HEMTOMA TECHNIQUE: Ultrasound performed using standard protocol. COMPARISON: No exams were available for comparison FINDINGS: Duplex venous ultrasound right lower extremity was performed according to the usual protocol. There is no evidence of deep venous thrombosis. Note is made of a 5.6 x 2.4 x 3.8 cm in diameter complex c ollection of the proximal to mid lateral thigh, this may represent a hematoma as the patient has a hi story of recent trauma to this area. The collection appears avascular. Note is also made of an apparent small simple cyst in the right medial distal thigh. IMPRESSION: No evidence of DVT. Presumed thigh hematoma as described. If this does not resolve clinically, appr opriate imaging follow-up would be indicated.
[2019-06-18 08:06] VITALS: RESP 18
[2019-06-18 08:16] VITALS: BP 195/101
== END 2019-06-18 08:55 | disposition home or self-care (01) ==
PROVIDERS: Emergency Provider Emergency Medicine
DX: S70.11XA Contusion of right thigh, initial encounter (principal); W13.3XXA Fall through floor, initial encounter; D68.59 Other primary thrombophilia; Z86.718 Personal history of other venous thrombosis and embolism; Z79.01 Long term (current) use of anticoagulants; I10 Essential (primary) hypertension
CPT/HCPCS: 99284; 93971

== ENCOUNTER 2019-07-06 08:41 | Outpatient (CLI) | payer OTHER, SELFPAY | END 2019-07-06 09:01 | PROVIDERS: Visit Provider Internal Medicine Cardiovascular Disease | DX: I25.10 Atherosclerotic heart disease of native coronary artery without angina pectoris (principal); Z95.5 Presence of coronary angioplasty implant and graft; I10 Essential (primary) hypertension | CPT/HCPCS: 93005; 93010 ==

== ENCOUNTER 2019-12-22 12:50 | Inpatient (IN) | payer OTHER, SELFPAY ==
[2019-12-22] VITALS (7 sets, daily range): BP systolic 133–163; BP diastolic 71–97; PULSE 58–80; RESP 16–20; TEMP 35.3–36.9; O2SAT 96–98
--- NOTE | 2019-12-22 12:45 | DI.CT_ITS ---
EXAM: CT HEAD - STROKE PROTOCOL CLINICAL HISTORY: R sided weakness, r/o acute cva. TECHNIQUE: Imaging Protocol: Axial computed tomography images with coronal and sagittal reformatted images were created and reviewed COMPARISON: No exams were available for comparison FINDINGS: There may be mild cerebral atrophy. No evidence of acute intracranial hemorrhage, mass effect, or midline shift. The orbital structures are unremarkable. The temporal bone structures appear intact. Calvarium: Normal. Visualized Paranasal sinuses/Mastoids: Clear. IMPRESSION: Normal cranial CT except for questionable mild cerebral atrophy. RADIATION DOSE DELIVERED: 734.78mGy.cm Total DLP DATA REPOSITORY: All CT scans at this facility are submitted to the National Radiology Data Registry (NRDR) Dose Index Registry (DIR) with the [employer] ([employer]). RADIATION OPTIMIZATION: All CT scans at this facility use at least one of these dose optimization te chniques: automated exposure control; mA and/or kV adjustment per patient size (includes targeted exa ms where dose is matched to clinical indication); or iterative reconstruction.
--- NOTE | 2019-12-22 13:08 | ED.GENADUL_ITS ---
Discharge Plan Disposition Patient Disposition: [facility] IN[facility]IENT Condition: Stable Discharge Details Chief Complaint: CVA/TIA Clinical Impression: Acute cerebrovascular accident Primary Care Provider: Rios Montejo ED Provider: Angie Bey Home Meds and New Rx's Prescriptions: No Action metformin 500 mg tablet 500 mg PO BID RF: 0 metoprolol succinate 100 mg capsule,sprinkle,ER 24hr 100 mg PO DAILY RF: 0 Xarelto 20 mg tablet 20 mg PO DAILY RF: 0 aspirin [Aspirin Low Dose] 81 mg tablet,delayed release (DR/EC) 81 mg PO DAILY RF: 0 atorvastatin 10 mg Tablet 10 mg PO DAILY RF: 0 clopidogrel 75 mg Tablet 75 mg PO DAILY RF: 0 amlodipine-benazepril 5-10 mg Capsule 1 tab PO DAILY RF: 0 Medical Decision Making 1310 -- 69-year-old male with a history of recent multiple CVAs, coronary artery disease with one coronary stent, DVT, PE, hypertension, hyperlipidemia, protein S deficiency, on aspirin, Plavix and Xarelto who presents for generalized weakness, worse on right side with complaint of not feeling well for the past hour. Patient appears generally slowed. He has 4/5 muscle strength in right upper and lower extremities compared to 5/5 muscle strength left upper and lower extremities. No obvious cranial nerve deficits noted. Patient sent for stat CT head which is negative. He was referred for CTA head and neck which noted stenosis of right vertebral artery just at or above the foramen magnum, this is poorly visualized but may be a high-grade stenosis and is of uncertain acuity. Left proximal posterior cerebral artery occlusion or high-grade stenosis, also of uncertain age, left posterior cerebral artery appears to reconstitute through collateral branches. 1530 --patient reassessed -he states he feels better. Muscle strength 5/5 bilateral upper and lower extremities. Labs reviewed. Lactate 2.3. No other acute significant findings. Urinalysis negative. Patient referred for MRI brain which notes Small scattered foci of restricted diffusion within the left parahippocampal gyrus, posteromedial left temporal lobe, left occipital lobe, and left posterior corpus callosum, concerning for acute infarcts within suspected left [employer] territory. Results and plan discussed with patient's daughter Jodi Wade. She was informed of plan for admission and likely transfer to the [place]. 1729 --Case discussed with [place] for neurology and transfer. 1829 --Case discussed with [facility] As patient is already on triple antiplatelet and anticoagulant therapy, no other acute recommendations at this time. Patient reassessed and he states he feels well and is questioning whether he can go home. Discussed that as this is an acute infarct, and Dr. Montejo has recommended a JASON, patient would benefit from transfer to the [place] for observation and further evaluation. 1900 --Case discussed with the [place] Dr. Sheriff who is patient for transfer to the [place]. There are no beds available tonight, and patient likely would [facility] Case discussed with hospitalist accepts patient for admission here overnight. Patient's daughter Jodi informed of plan. Medical Records Medical records reviewed: Yes I reviewed the patient's medical records. Imaging Data Radiologic Study: Radiologist's impression: CT HEAD - STROKE PROTOCOL CLINICAL HISTORY: R sided weakness, r/o acute cva. TECHNIQUE: Imaging Protocol: Axial computed tomography images with coronal and sagittal reformatted images were created and reviewed COMPARISON: No exams were available for comparison FINDINGS: There may be mild cerebral atrophy. No evidence of acute intracranial hemorrhage, mass effect, or midline shift. The orbital structures are unremarkable. The temporal bone structures appear intact. Calvarium: Normal. Visualized Paranasal sinuses/Mastoids: Clear. IMPRESSION: Normal cranial CT except for questionable mild cerebral atrophy. CT BRAIN NECK CTA CLINICAL HISTORY: R sided weakness, r/o acute cva TECHNIQUE: CT angiography of the cervicocranial region was performed with intravenous infusion of 100 cc of Omnipaque 350. FINDINGS: Images obtained through the lung apices are unremarkable. Tracheolaryngeal structures appear intact. No cervical mass or adenopathy. Visualized aortic arch and branch vessels appear intact. The common and internal carotid arteries are unremarkable in appearance bilaterally except for mild atheromatous calcified plaque formation at the carotid bifurcations without significant stenosis. Vertebral arteries are unremarkable bilaterally in their extracranial extent. There is apparent stenosis of the right vertebral artery just above the foramen magnum, this may be a greater than 90 percent stenosis. Left vertebral artery is unremarkable. Basilar artery appears normal. Left posterior cerebral artery is supplied mainly across collaterals. Right posterior cerebral artery is unremarkable. There is a high-grade stenosis of the left posterior cerebral artery approximately 1 cm from its origin. Anterior cerebral arteries are unremarkable in appearance bilaterally. Middle cerebral arteries and major branches appear intact. Intracranial internal carotid arteries are unremarkable except for some calcified nonobstructing atheromatous plaque in the cavernous portions bilaterally. IMPRESSION: Stenosis of right vertebral artery just at or above the foramen magnum, this is poorly visualized but may be a high-grade stenosis and is of uncertain acuity. Left proximal posterior cerebral artery occlusion or high-grade stenosis, also of uncertain age, left posterior cerebral artery appears to reconstitute through collateral branches. Lab Data Lab results reviewed: Yes I reviewed the patient's lab results. Labs: 12/22/19 14:30 Blood Blood Culture - Pending 12/22/19 13:50 Blood Blood Culture - Pending Laboratory Tests Range/Units 12/22/19 12/22/19 12/22/19 13:10 13:10 13:10 WBC (4.4-10.8) k/cumm 7.58 RBC (4.50-6.00) m/cumm 4.78 Hgb (13.5-17.5) g/dL 15.1 Hct (40.0-50.0) % 42.1 MCV (80-95) fL 88.1 MCH (27.0-33.0) pg 31.6 MCHC (32.0-36.0) g/dL 35.9 RDW (11.8-14.1) % 13.8 Plt Count (130-400) x1000/uL 156 MPV (8.0-11.0) fL 9.7 Immature Gran % % 0.3 Neutrophils % 63.8 Lymphocytes % 23.7 Monocytes % 9.4 Eosinophils % 2.4 Basophils % 0.4 Absolute Neutrophils (1.2-6.7) k/cumm 4.84 Absolute Lymphocytes (1.2-3.4) k/cumm 1.80 Absolute Monocytes (0.11-0.7) k/cumm 0.71 H Absolute Eosinophils (0.0-0.7) k/cumm 0.18 Absolute Basophils (0.0-0.2) k/cumm 0.03 PT (9.3-11.0) sec INR (0.9-1.1) APTT (21.0-31.4) sec Sodium (136-145) mmol/L 139 Potassium (3.5-5.1) mmol/L 4.1 Chloride (98-107) mmol/L 105 Carbon Dioxide (21.0-32.0) mmol/L 25.0 Anion Gap (3-11) mmol/L 9.0 BUN (7-18) mg/dL 16 Creatinine (0.70-1.30) mg/dL 1.25 Estimated GFR/1.73 m2 (mL/min/1.73m2) 56.94 Glucose (74-106) mg/dL 156 H Lactate (0.6-1.4) mmol/L 2.3 H* Calcium (8.5-10.1) mg/dL 8.9 Magnesium (1.8-2.4) mg/dL 1.9 Total Bilirubin (0.2-1.0) mg/dL 0.5 AST (15-37) U/L 21 ALT (16-63) U/L 36 Alkaline Phosphatase (46-116) U/L 49 Troponin I (<0.06) ng/mL < 0.05 Total Protein (6.4-8.2) g/dL 7.6 Albumin (3.4-5.0) g/dL 4.0 Urine Color (Yellow) Urine Clarity (Clear) Urine pH (5-8) Ur Specific Kake (1.005-1.025) Urine Protein (Negative) mg/dL Urine Ketones (Negative) mg/dL Urine Blood (Negative) Urine Nitrite (Negative) Urine Bilirubin (Negative) Urine Urobilinogen (Up TO 0.2) EU/dL Ur Leukocyte Esterase (Negative) Urine Glucose (Negative) mg/dL Range/Units 12/22/19 12/22/19 13:10 15:00 WBC (4.4-10.8) k/cumm RBC (4.50-6.00) m/cumm Hgb (13.5-17.5) g/dL Hct (40.0-50.0) % MCV (80-95) fL MCH (27.0-33.0) pg MCHC (32.0-36.0) g/dL RDW (11.8-14.1) % Plt Count (130-400) x1000/uL MPV (8.0-11.0) fL Immature Gran % % Neutrophils % Lymphocytes % Monocytes % Eosinophils % Basophils % Absolute Neutrophils (1.2-6.7) k/cumm Absolute Lymphocytes (1.2-3.4) k/cumm Absolute Monocytes (0.11-0.7) k/cumm Absolute Eosinophils (0.0-0.7) k/cumm Absolute Basophils (0.0-0.2) k/cumm PT (9.3-11.0) sec 13.4 H INR (0.9-1.1) 1.3 H APTT (21.0-31.4) sec 29.2 Sodium (136-145) mmol/L Potassium (3.5-5.1) mmol/L Chloride (98-107) mmol/L Carbon Dioxide (21.0-32.0) mmol/L Anion Gap (3-11) mmol/L BUN (7-18) mg/dL Creatinine (0.70-1.30) mg/dL Estimated GFR/1.73 m2 (mL/min/1.73m2) Glucose (74-106) mg/dL Lactate (0.6-1.4) mmol/L Calcium (8.5-10.1) mg/dL Magnesium (1.8-2.4) mg/dL Total Bilirubin (0.2-1.0) mg/dL AST (15-37) U/L ALT (16-63) U/L Alkaline Phosphatase (46-116) U/L Troponin I (<0.06) ng/mL Total Protein (6.4-8.2) g/dL Albumin (3.4-5.0) g/dL Urine Color (Yellow) Yellow Urine Clarity (Clear) Clear Urine pH (5-8) 5.5 Ur Specific Kake (1.005-1.025) 1.010 Urine Protein (Negative) mg/dL Negative Urine Ketones (Negative) mg/dL Negative Urine Blood (Negative) Negative Urine Nitrite (Negative) Negative Urine Bilirubin (Negative) Negative Urine Urobilinogen (Up TO 0.2) EU/dL 0.2 Ur Leukocyte Esterase (Negative) Negative Urine Glucose (Negative) mg/dL Negative ECG Data Attestation: I personally reviewed and interpreted this ECG (s) as follows: Interpretation: Rate of 66, sinus, no acute ST elevation or depression. T wave inversion in aVL. LA 208. QTc 423. QRS 88. HPI General Mode of arrival: wheelchair . Date/Time Provider Initiated Documentation: 12/22/19 12:53 . Limitations to Documentation: no limitations . Information obtained by: patient . HPI Narrative: Patient is a 69-year-old male with a history of multiple recent CVAs, coronary artery disease, PE, DVT, protein S deficiency, coronary stent on aspirin, Plavix and Xarelto who presents with a complaint of not feeling well for the past hour. He states for the past hour he has felt generally weak, but worse on the right side. He denies any headache, dizziness, blurry vision, nausea, vomiting, chest pain, shortness of breath, abdominal pain or any recent injury. He was recently admitted to the [place] for acute stroke and discharged on Friday. He states he has been ambulatory over the past few days, but this became worse over the past hour as he states he was having difficulty walking due to this generalized weakness. He states his daughter drove him here. She recently traveled from [place] on a plane. He denies any known exposure to coronavirus, recent illness, fever, cough. Related Data Home Medications Medication Instructions Recorded Confirmed amlodipine-benazepril 1 tab PO DAILY 05/20/18 12/22/19 atorvastatin 10 mg PO DAILY 05/20/18 12/22/19 clopidogrel 75 mg PO DAILY 05/20/18 12/22/19 aspirin 81 mg tablet,delayed 81 mg PO DAILY 07/02/19 12/22/19 release metformin 500 mg tablet 500 mg PO BID 07/02/19 12/22/19 metoprolol succinate 100 mg 100 mg PO DAILY 07/02/19 12/22/19 capsule sprinkle, ext. release 24 hr rivaroxaban 20 mg tablet 20 mg PO DAILY 07/02/19 12/22/19 Allergies Allergy/AdvReac Type Severity Reaction Status Date / Time No Known Allergies Allergy Unverified 07/06/19 12:59 General Stated Complaint: CVA/TIA YANNI: 2 Review of Systems All systems reviewed & are unremarkable except as noted in HPI and below Constitutional Constitutional: Reports as per HPI, Denies chills and Denies fever(s) Eyes Eyes: Denies blurry vision ENT Ears, Nose, Mouth, and Throat: Denies dizziness, Denies sore throat and Denies throat swelling Cardiovascular Cardiovascular: Denies chest pain and Denies dyspnea Respiratory Respiratory: Denies cough and Denies dyspnea Gastrointestinal Gastrointestinal: Denies abdominal pain, Denies diarrhea and Denies vomiting Genitourinary Genitourinary: Denies hematuria and Denies dysuria Musculoskeletal Musculoskeletal: Denies back pain and Denies numbness Integumentary/Breasts Skin/Breast: Denies lesions and Denies rash Neurologic Neurologic: Denies dizziness, Reports localized weakness and Denies numbness Allergic/Immunologic Allergic/Immunologic: Denies throat swelling [facility] Medical History CAD (coronary artery disease) (Chronic) DVT (deep venous thrombosis) (Resolved) HTN (hypertension) (Chronic) Hypercholesterolemia (Chronic) Protein S deficiency (Chronic) Pulmonary embolism (Resolved) Surgical History History of heart artery stent (Chronic ~2002) Previous back surgery (Chronic) S/P cholecystectomy (Chronic) S/P small bowel resection (Chronic) Social History Smoking/Tobacco Use Status: Never Alcohol Intake: never Drug use: Never What type of physical activity do you participate in: none Do you feel safe at home: Yes Do you feel safe in your relationship?: Yes Exam Const General: cooperative and no acute distress Orientation: alert, awake and oriented x3 HENMT Head: normal to inspection Ears: hearing grossly normal bilaterally, external ears normal and TM's normal bilaterally General nose exam: external nose normal Face and sinus: normal facial exam Mouth: oral mucosae normal Teeth and gingiva: dentition normal Throat: posterior oropharynx normal Eyes General: appearance normal, both eyes and all related structures Eyelids: eyelids normal Pupils: PERRL EOM: EOM intact bilaterally Neck Neck: normal visual inspection Lymphatic: no lymphadenopathy noted Chest Chest: normal inspection of the chest Resp Effort & Inspection: normal respiratory effort and able to speak in complete sentences Auscultation: clear to auscultation bilaterally Cardio Rate: regular rate Rhythm: regular rhythm GI Inspection: normal to inspection Palpation: soft, not firm, no guarding, no hepatosplenomegaly, no masses and nontender Auscultation: normal bowel sounds Back/Spine/Pelvis Back: no CVA tenderness Skin General skin exam: no rashes or lesions noted Neuro General: patient awake, patient oriented x3 and other (mental status slowed) Cognition: normal cognition Speech: abnormal speech other (slight slowed) Gait: staggering Motor: muscle tone normal throughout and other (4/5 MS RUE/RLE, 5/5 MS LUE/LLE) Sensory Exam: no sensory deficits noted Extrem General: normal to inspection, full ROM and capillary refill normal Psych Appearance: grossly normal Mental Status: mental status grossly normal Affect: normal affect Thought Process: normal Course Vital Signs Vital signs: Vital Signs Temperature 98.4 F 12/22/19 13:01 Pulse 80 12/22/19 13:01 Respiratory Rate 18 12/22/19 13:01 Blood Pressure 133/84 12/22/19 13:01 Pulse Oximetry 98 12/22/19 13:01 Temperature 98.4 F 12/22/19 13:01 Temperature Source Skin 12/22/19 13:01 Pulse 80 12/22/19 13:01 Respiratory Rate 18 12/22/19 13:01 Blood Pressure 133/84 12/22/19 13:01 Pulse Oximetry 98 12/22/19 13:01 Oxygen Delivery Method Room Air 12/22/19 13:01 Oxygen Flow Rate 0 12/22/19 13:01 Pain Level 0 12/22/19 13:01 Lab/Test Results Lab/Test Results: 12/22/19 13:05 Blood Blood Culture - Pending 12/22/19 13:05 Blood Blood Culture - Pending
[2019-12-22 13:24] LABS: Abs Immature Grans 0.02 k/cumm (0.0-0.09); Absolute Basophil Count 0.03 k/cumm (0.0-0.2); Absolute Eosinophil Count 0.18 k/cumm (0.0-0.7); Absolute Monocyte Count 0.71 k/cumm (0.11-0.7); Absolute Neutrophil Count 4.84 k/cumm (1.2-6.7); Basophils % 0.4; Eosinophils % 2.4; HCT 42.1 % (40.0-50.0); HGB 15.1 g/dL (13.5-17.5); Immature Grans % 0.3 %; Lymphocytes % 23.7; Mean Corp. HGB Concentration 35.9 g/dL (32.0-36.0); Mean Corpuscular Hemoglobin 31.6 pg (27.0-33.0); Mean Corpuscular Volume 88.1 fL (80-95); Mean Platelet Volume 9.7 fL (8.0-11.0); Monocytes % 9.4; Neutrophils % 63.8; Platelet Count 156 x1000/uL (130-400); RBC 4.78 m/cumm (4.50-6.00); RBC Distribution Width 13.8 % (11.8-14.1); White Blood Cell Count 7.58 k/cumm (4.4-10.8)
[2019-12-22 13:27] LABS: Lactate 2.3 mmol/L (0.6-1.4)
[2019-12-22 13:42] LABS: ALT 36 U/L (16-63); AST 21 U/L (15-37); Alkaline Phosphatase 49 U/L (46-116); BUN 16 mg/dL (7-18); Bilirubin, Total 0.5 mg/dL (0.2-1.0); CREATININE 1.25 mg/dL (0.70-1.30); Calcium 8.9 mg/dL (8.5-10.1); Chloride 105 mmol/L (98-107); Estimated GFR 56.94 (mL/min/1.73m2); Glucose 156 mg/dL (74-106); Magnesium 1.9 mg/dL (1.8-2.4); Potassium 4.1 mmol/L (3.5-5.1); Sodium 139 mmol/L (136-145); Total Protein 7.6 g/dL (6.4-8.2); Troponin I < 0.05 ng/mL (<0.06)
--- NOTE | 2019-12-22 13:45 | DI.RAD_ITS ---
EXAM: XR PORTABLE CHEST AP CLINICAL HISTORY: possible stroke, r/o acute disease TECHNIQUE: COMPARISON: CR XR CHEST 2V PA LATERAL from 05/20/2018 FINDINGS: Portable AP chest film was obtained. Cardiac size is at the upper limits of normal. Lungs are gross ly clear and well expanded. IMPRESSION: No evidence of acute process.
[2019-12-22 13:56] LABS: INR 1.3 (0.9-1.1); PTT Activated 29.2 sec (21.0-31.4); Prothrombin Time 13.4 sec (9.3-11.0)
--- NOTE | 2019-12-22 14:00 | DI.CT_ITS ---
EXAM: CT BRAIN NECK CTA CLINICAL HISTORY: R sided weakness, r/o acute cva TECHNIQUE: CT angiography of the cervicocranial region was performed with intravenous infusion of 10 0 cc of Omnipaque 350. FINDINGS: Images obtained through the lung apices are unremarkable. Tracheolaryngeal structures appear intact. No cervical mass or adenopathy. Visualized aortic arch and branch vessels appear intact. The common and internal carotid arteries ar e unremarkable in appearance bilaterally except for mild atheromatous calcified plaque formation at t he carotid bifurcations without significant stenosis. Vertebral arteries are unremarkable bilaterally in their extracranial extent. There is apparent stenosis of the right vertebral artery just above the foramen magnum, this may be a greater than 90 percent stenosis. Left vertebral artery is unremarkable. Basilar artery appears no rmal. Left posterior cerebral artery is supplied mainly across collaterals. Right posterior cerebra l artery is unremarkable. There is a high-grade stenosis of the left posterior cerebral artery appro ximately 1 cm from its origin. Anterior cerebral arteries are unremarkable in appearance bilaterally. Middle cerebral arteries and major branches appear intact. Intracranial internal carotid arteries are unremarkable except for hai e calcified nonobstructing atheromatous plaque in the cavernous portions bilaterally. IMPRESSION: Stenosis of right vertebral artery just at or above the foramen magnum, this is poorly visualized but may be a high-grade stenosis and is of uncertain acuity. Left proximal posterior cerebral artery occlusion or high-grade stenosis, also of uncertain age, left posterior cerebral artery appears to reconstitute through collateral branches.
--- NOTE | 2019-12-22 14:59 | NUR.NOTE ---
1415 : spoke with patients daughter Jodi Wade. Jodi aware that MD Bey will call patient within two hours and if they did not. please call . Nursing Note:
[2019-12-22] MEDS: Omnipaque 350 MG/ML 100 ML BTL IJ (15:05)
[2019-12-22] MEDS: Normal Saline - Diluent 50 ML VIAL IV (15:06)
--- NOTE | 2019-12-22 15:30 | DI.MRI_ITS ---
EXAM: MR BRAIN WO CLINICAL HISTORY: R vertebral artery stenosis, r/o acute cva. TECHNIQUE: Multiplanar multisequence MRI was performed. COMPARISON: No exams were available for comparison FINDINGS: MR examination of brain was performed according to the usual protocol. There is moderate generalized cerebral atrophy. The orbital and temporal bone structures and pituitary appear intact. There are areas of diffusion restriction in medial posterior temporal lobe and left occipital lobe. Left posterior corpus callosal diffusion restriction also seen, these all correspond to areas of dec reased signal on ADC mapping and the findings are consistent with acute to subacute infarction. Toda y's CT angiogram showed P1 segment left posterior cerebral artery occlusion or near occlusion. A few additional areas of abnormal signal are noted on FLAIR imaging in the periventricular white mat ter consistent with microvascular ischemic change, most notable right frontal. No other significant signal abnormality identified in the brain. Susceptibility weighted imaging shows no evidence of acu te hemorrhage. IMPRESSION: Left posterior cerebral artery territory multiple acute or subacute infarctions as described above. DATA REPOSITORY:
[2019-12-22 16:03] LABS: Bilirubin Negative (Negative); Blood Negative (Negative); Clarity Clear (Clear); Glucose Negative (Negative); Ketones Negative (Negative); Leukocyte Esterase Negative (Negative); Nitrite Negative (Negative); Urobilinogen 0.2 EU/dL (Up TO 0.2); pH 5.5 (5-8)
--- NOTE | 2019-12-22 16:52 | DI.VRAD_ITS ---
Addendum created by Cecil Robertson MD on 12/22/2019 5:14:46 PM EDT Areas of infarct also demonstrate FLAIR hyperintensity which could indicate acute to subacute infarcts. THIS REPORT CONTAINS FINDINGS THAT MAY BE CRITICAL TO PATIENT CARE. The findings were verbally communicated via telephone conference with Angie Bey at 5:14 PM EDT on 12/22/2019. The findings were acknowledged and understood. Initial report created on 12/22/2019 4:51:36 PM EDT PROCEDURE INFORMATION: Exam: MR Head Without Contrast Exam date and time: 12/22/2019 4:31 PM Age: 69 years old Clinical indication: Walking, difficulty TECHNIQUE: Imaging protocol: MR of the head without contrast. 3D rendering: MIP and/or 3D reconstructed images were created by the technologist. COMPARISON: CT HEAD - STROKE PROTOCOL 12/22/2019 1:05 PM FINDINGS: Brain: Small scattered foci of restricted diffusion are present within the left parahippocampal gyrus, posteromedial left temporal lobe, left occipital lobe, and left posterior corpus callosum, concerning for acute infarcts within suspected left [employer]ES[employer]IMER territory. Small chronic right centrum semiovale lacunar infarct. Few scattered nonspecific T2/FLAIR hyperintensities of the periventricular and deep subcortical white matter, most likely secondary to chronic small vessel ischemic change. No intracranial hemorrhage or extra-axial fluid collection. No evidence of mass effect or midline shift. Ventricles: Mild prominence of the ventricles and sulci, likely attributed to parenchymal volume loss. Bones/joints: Unremarkable. Sinuses: Unremarkable. Mastoid air cells: No mastoid effusion. Orbits: Unremarkable. Soft tissues: Unremarkable. IMPRESSION: 1. Small scattered foci of restricted diffusion within the left parahippocampal gyrus, posteromedial left temporal lobe, left occipital lobe, and left posterior corpus callosum, concerning for acute infarcts within suspected left ADHESIVE PRIMER territory 2. Other chronic findings, as above. Dictated and Authenticated by: Cecil Robertson MD. Ordering:ELMA Adams MD
--- NOTE | 2019-12-22 19:45 | W.PM.HP.N ---
Date of service: 12/22/19 Time of Service: 19:45 Assessment and Plan Assessment and plan (1) TIA (transient ischemic attack): Status: Acute Assessment and plan: TIA in setting of multiple and recurrent CVAs. That all lesions are in single territory is strong evidence this is not cardioembolic and the MANAGEMENT NURSE RN lesion identified on CTA would be suspect. It is again noted that patient is on full anticoagulation and DUAP so this would have to be considered treatment failure. Would consider perhaps trial switch to alternate to Plavix such as Brilinta but will defer to Neurology in this regard. For tonight will monitor. If patient should develop recurrent symptoms will push for urgent transfer for possible interventional treatment.. History of Present Illness History of Present Illness Chief Complaint: right sided weakness Narrative: 69 male with h/o protein S deficiency, and multiple atherothrombotic events, including DVT, CAD, stroke and PE. Maintained on DUAP and Xarelto. [facility] what is described as stroke manifesting with right sided weakness, d/c'ed apparently w/o change of therapy, but JASON advised. Comes in tonight with righrt sided weakness. In ER 4/5 right hemiparesis noted, then resolved. W/U of note for no bleed by CT; MRI showing multiple acute stroke lesions in left MANAGEMENT NURSE RN territory, and MRA showing tight stenosis of same versus occlusion, with collaterals; also tight stenosis right vertebral a. Accepted at [facility] pending bed availability in AM. RER reviewed with [facility] neuro who advised that patient on full preventive regimen, no additions advised. Patient admitted for further monitoring. At present patient states he feels his usual self. Review of Systems All systems reviewed & are unremarkable except as noted in HPI and below PFSH Medical History CAD (coronary artery disease) (Chronic) DVT (deep venous thrombosis) (Resolved) HTN (hypertension) (Chronic) Hypercholesterolemia (Chronic) Protein S deficiency (Chronic) Pulmonary embolism (Resolved) Surgical History History of heart artery stent (Chronic ~2002) Previous back surgery (Chronic) S/P cholecystectomy (Chronic) S/P small bowel resection (Chronic) Social History Smoking/Tobacco Use Status: Never Alcohol Intake: never Drug use: Never What type of physical activity do you participate in: none Do you feel safe at home: Yes Do you feel safe in your relationship?: Yes Meds Home Medications and Allergies Home Medications Medication Instructions Recorded Confirmed Type amlodipine-benazepril 1 tab PO DAILY 05/20/18 12/22/19 History atorvastatin 10 mg PO DAILY 05/20/18 12/22/19 History clopidogrel 75 mg PO DAILY 05/20/18 12/22/19 History aspirin 81 mg tablet,delayed 81 mg PO DAILY 07/02/19 12/22/19 History release metformin 500 mg tablet 500 mg PO BID 07/02/19 12/22/19 History metoprolol succinate 100 mg 100 mg PO DAILY 07/02/19 12/22/19 History capsule sprinkle, ext. release 24 hr rivaroxaban 20 mg tablet 20 mg PO DAILY 07/02/19 12/22/19 History Allergies Allergy/AdvReac Type Severity Reaction Status Date / Time No Known Allergies Allergy Unverified 07/06/19 12:59 Exam Narrative Exam Narrative: 145/83, 760, 18, 36.6, 98% RA. HEENT atraumatic; neck supple w/o bruit; lungs clear; heart RRR w/o MRG; abdomen soft and NT; extremikties w/o edema, pulse 2+/=; neuro Ox3, PERRL, EOMI, fileds full, no facila asymmetry; motor 5/5 throughout; sensory intact touch; toes downgoing Results Labs Result diagrams: 12/22/19 13:10 12/22/19 13:10 Labs: Laboratory Results - last 24 hr 12/22/19 12/22/19 12/22/19 13:10 13:10 13:10 WBC 7.58 RBC 4.78 Hgb 15.1 Hct 42.1 MCV 88.1 MCH 31.6 MCHC 35.9 RDW 13.8 Plt Count 156 MPV 9.7 Immature Gran % 0.3 Neutrophils % 63.8 Lymphocytes % 23.7 Monocytes % 9.4 Eosinophils % 2.4 Basophils % 0.4 Absolute Neutrophils 4.84 Absolute Lymphocytes 1.80 Absolute Monocytes 0.71 H Absolute Eosinophils 0.18 Absolute Basophils 0.03 PT INR APTT Sodium 139 Potassium 4.1 Chloride 105 Carbon Dioxide 25.0 Anion Gap 9.0 BUN 16 Creatinine 1.25 Estimated GFR/1.73 m2 56.94 Glucose 156 H Lactate 2.3 H* Calcium 8.9 Magnesium 1.9 Total Bilirubin 0.5 AST 21 ALT 36 Alkaline Phosphatase 49 Troponin I < 0.05 Total Protein 7.6 Albumin 4.0 Urine Color Urine Clarity Urine pH Ur Specific [place] Urine Protein Urine Ketones Urine Blood Urine Nitrite Urine Bilirubin Urine Urobilinogen Ur Leukocyte Esterase Urine Glucose 12/22/19 12/22/19 13:10 15:00 WBC RBC Hgb Hct MCV MCH MCHC RDW Plt Count MPV Immature Gran % Neutrophils % Lymphocytes % Monocytes % Eosinophils % Basophils % Absolute Neutrophils Absolute Lymphocytes Absolute Monocytes Absolute Eosinophils Absolute Basophils PT 13.4 H INR 1.3 H APTT 29.2 Sodium Potassium Chloride Carbon Dioxide Anion Gap BUN Creatinine Estimated GFR/1.73 m2 Glucose Lactate Calcium Magnesium Total Bilirubin AST ALT Alkaline Phosphatase Troponin I Total Protein Albumin Urine Color Yellow Urine Clarity Clear Urine pH 5.5 Ur Specific [place] 1.010 Urine Protein Negative Urine Ketones Negative Urine Blood Negative Urine Nitrite Negative Urine Bilirubin Negative Urine Urobilinogen 0.2 Ur Leukocyte Esterase Negative Urine Glucose Negative Last Vital Signs Temp 36.6 C 12/22/19 19:21 Pulse 60 12/22/19 19:21 Resp 18 12/22/19 19:21 BP 145/83 H 12/22/19 19:21 Pulse Ox 98 12/22/19 19:21 COVID-19 Screening In the past 14 days, have you traveled outside of [place]?: NO Had IN PERSON contact w/suspected or confirmed C-19 person: No
[2019-12-23 04:06] VITALS: BP 146/91; PULSE 65; RESP 18; TEMP 36; O2SAT 95
[2019-12-23 07:50] VITALS: BP 137/72; PULSE 63; RESP 18; TEMP 36.4; O2SAT 94
[2019-12-23] MEDS: Benazepril 10 MG TAB PO (08:05)
[2019-12-23] MEDS: Rivaroxaban 10 MG TABLET 20 MG PO (08:08)
[2019-12-23] MEDS: Clopidogrel 75 MG TAB PO (08:09)
[2019-12-23] MEDS: amLODIPine 5 MG TAB PO (08:09)
[2019-12-23] MEDS: Metoprolol CR 100 MG TABCR PO (08:09)
[2019-12-23] MEDS: Aspirin E.C. 81 MG TABEC PO (08:10)
[2019-12-23] MEDS: Atorvastatin 10 MG TAB PO (08:16)
[2019-12-23 10:48] LABS: Abs Immature Grans 0.01 k/cumm (0.0-0.09); Absolute Basophil Count 0.02 k/cumm (0.0-0.2); Absolute Eosinophil Count 0.19 k/cumm (0.0-0.7); Absolute Lymphocyte Count 1.31 k/cumm (1.2-3.4); Absolute Monocyte Count 0.66 k/cumm (0.11-0.7); Absolute Neutrophil Count 4.64 k/cumm (1.2-6.7); Basophils % 0.3; Eosinophils % 2.8; HCT 40.8 % (40.0-50.0); HGB 14.4 g/dL (13.5-17.5); Immature Grans % 0.1 %; Lymphocytes % 19.2; Mean Corp. HGB Concentration 35.3 g/dL (32.0-36.0); Mean Corpuscular Hemoglobin 31.2 pg (27.0-33.0); Mean Corpuscular Volume 88.5 fL (80-95); Mean Platelet Volume 8.9 fL (8.0-11.0); Monocytes % 9.7; Neutrophils % 67.9; Platelet Count 137 x1000/uL (130-400); RBC 4.61 m/cumm (4.50-6.00); RBC Distribution Width 13.7 % (11.8-14.1); White Blood Cell Count 6.83 k/cumm (4.4-10.8)
[2019-12-23 11:13] LABS: Anion Gap 10.8 mmol/L (3-11); BUN 12 mg/dL (7-18); CO2 24.2 mmol/L (21.0-32.0); CREATININE 1.05 mg/dL (0.70-1.30); Calcium 8.7 mg/dL (8.5-10.1); Chloride 104 mmol/L (98-107); Glucose 149 mg/dL (74-106); Magnesium 1.8 mg/dL (1.8-2.4); Potassium 3.7 mmol/L (3.5-5.1); Sodium 139 mmol/L (136-145)
--- NOTE | 2019-12-23 11:29 | TELEFU_ITS ---
Date of service: 12/23/19 Time of Service: 11:29 Nutritional Follow up NOTE: 69 year old male admitted with TIA and right sided weakness. PMH: Protein S Deficiency, PE, stroke, DVT. BMI 31 indicates class 1 obesity, however chart review indicates 30 lbs weight loss in 6 months, beneficial. Following regular diet with regular texture since admit, nursing reports no issues. PO intake > 75% meals. Recommend PIER MASTER ASSISTANT consult. Will follow and monitor po intake and make warranted adjustements for optimal intake to meet nutrient needs. Time Spent in Nutritional Counseling and Treatment: 0 time spent face to face
[2019-12-23 11:32] VITALS: BP 142/82; PULSE 64; RESP 18; TEMP 36.4; O2SAT 95
[2019-12-23 11:54] LABS: COVID-19 RT-PCR UVMMC Result Negative (Negative)
[2019-12-23 15:24] VITALS: BP 159/90; PULSE 69; RESP 18; TEMP 36.4; O2SAT 95
--- NOTE | 2019-12-23 17:12 | INITIAL_ITS ---
- If Service Date Differs Date of service: 12/23/19 Time of Service: 17:12 Care Management Initial Assess REASON FOR HOSPITALIZATION:: TIA PAST MEDICAL HISTORY/PAST SURGICAL HISTORY:: Medical History . CAD (coronary artery disease) (Chronic). DVT (deep venous thrombosis) (Resolved). HTN (hypertension) (Chronic). Hypercholesterolemia (Chronic). Protein S deficiency (Chronic). Pulmonary embolism (Resolved). Surgical History . History of heart artery stent (Chronic ~2002). Previous back surgery (Chronic). S/P cholecystectomy (Chronic). S/P small bowel resection (Chronic) PREVIOUS FUNCTIONAL STATUS/SOCIAL/FAMILY SUPPORTS:: Ankur lives in [place]. His daughter, Jodi, lives in [place] and is identified as his main support person. He is a , connected with the [facility] in [place], [place]. CURRENT FUNCTIONAL STATUS:: Due to Covid 19 restrictions, CM was unable to visit with Ankur today. The plan for today was [facility] a [facility] available. At 16:00, the provider was informed that they were not able to accept him for transfer. The provider stated that a transfer to [facility] would be attempted. CM will continue to follow. ADVANCE DIRECTIVES:: None on file. Has patient been provided with info about the portal/API?: No Did the patient sign up for the portal?: No CODE STATUS:: Full Code INSURANCE COVERAGE / FINANCIAL ISSUES:: Commercial [employer]/ [employer]/ [facility] CURRENT HOME/COMMUNITY SERVICES/EQUIPMENT:: Unknown at this time. PRIMARY CARE PHYSICIAN:: Rios Montejo POTENTIAL DISCHARGE NEEDS:: transfer to a tertiary facility PATIENT/FAMILY EDUCATION NEEDS:: Review plan with pt and family once it is made available. ANTICIPATED BARRIERS TO DISCHARGE:: bed availability for transfer. TRANSPORTATION:: If transferred, he will be transported via ambulance. PLAN:: Anticipate Ankur will be transferred to a tertiary facility, as indicated by the provider. He will transfer via ambulance. He will follow up with his PCP and discharge plan of care. CM will continue to follow.
--- NOTE | 2019-12-23 19:46 | W.PM.PROGNOT ---
Date of Service Date of service: 12/23/19 Time of Service: 19:46 Assessment and Plan Assessment and plan (1) Acute cerebrovascular accident: Status: Acute Assessment and plan: Multiple acute and subacute infarctions in the L posterior cerebral artery territory. Continue aspirin, plavix, xarelto, statin. Patient to decide whether or not he wants to be transferred for a neurology evaluation or stay here. May benefit from a JASON. BP meds resumed as he was passed the first 24 hours of symptoms. (2) Occlusion of left posterior cerebral artery: Status: Acute Assessment and plan: As above - continue aspirin, plavix, xarelto, statin. (3) Protein S deficiency: Status: Chronic Assessment and plan: Continue xarelto (4) HTN (hypertension): Status: Chronic Assessment and plan: Toprol XL, amlodipine, benazepril. Past the first 24 hours of sx. (5) DVT prophylaxis: Status: Acute Assessment and plan: On therapeutic xarelto (6) Discharge planning issues: Status: Acute Assessment and plan: Full code Patient deciding on his disposition. [facility]. Subjective Subjective Interval history since last seen: Mr Negrete states he is feeling back to normal, though he is not sure if he can walk as well as he normally would outside. He denies dizziness, chest pain, shortness of breath, nausea, vomiting. The [facility] in transfer due to lack of neurology services until at least Friday. [facility] does not have beds. The patient is not sure if he wants to be transferred or wants to wait with us until neurology is available/JASON could be done. Exam Narrative Exam Narrative: General: Very pleasant middle-aged male, A&Ox3, laying comfortably in bed, no focal deficits HEENT: EOMI, MMM Heart: RRR, no m/r/g Lungs: CTAB Abdomen: soft, nontender, nondistended Extremities: no e/c/c BLE's Objective Objective Clinical Data: Abnormal lab results 12/23/19 Range/Units 10:35 Glucose 149 H (74-106) mg/dL Vital Signs Temperature 36.4 C L 12/23/19 15:24 Temperature Source Tympanic 12/23/19 15:24 Pulse 69 12/23/19 15:24 Pulse Rhythm Regular 12/23/19 11:50 Respiratory Rate 18 12/23/19 15:24 Respiratory Effort Non-Labored 12/23/19 11:50 Respiratory Depth Normal 12/23/19 11:50 Respiratory Pattern Normal 12/23/19 11:50 Blood Pressure 159/90 H 12/23/19 15:24 Pulse Oximetry 95 12/23/19 15:24 Oxygen Delivery Method Room Air 12/23/19 15:24 Oxygen Flow Rate 0 12/23/19 15:24 Pain Level 0 12/23/19 15:24 Intake & Output 12/22/19 12/23/19 12/23/19 23:59 11:59 23:59 Intake Total 500 / 500 Balance 500 / 500 Weight 92.079 kg Intake: IV Oral 500 / 500 Other: Urine Color Yellow Urine Appearance Clear Clear Clear Urine Odor Normal Comment pt went to bathroom independently, unable to assess urine Stool Size Moderate Stool Characteristics Soft Liquid Voiding Methods Toilet Toilet Toilet Laboratory Results WBC 6.83 k/cumm (4.4-10.8) 12/23/19 10:35 RBC 4.61 m/cumm (4.50-6.00) 12/23/19 10:35 Hgb 14.4 g/dL (13.5-17.5) 12/23/19 10:35 Hct 40.8 % (40.0-50.0) 12/23/19 10:35 MCV 88.5 fL (80-95) 12/23/19 10:35 MCH 31.2 pg (27.0-33.0) 12/23/19 10:35 MCHC 35.3 g/dL (32.0-36.0) 12/23/19 10:35 RDW 13.7 % (11.8-14.1) 12/23/19 10:35 Plt Count 137 x1000/uL (130-400) 12/23/19 10:35 MPV 8.9 fL (8.0-11.0) 12/23/19 10:35 Immature Gran % 0.1 % 12/23/19 10:35 Neutrophils % 67.9 12/23/19 10:35 Lymphocytes % 19.2 12/23/19 10:35 Monocytes % 9.7 12/23/19 10:35 Eosinophils % 2.8 12/23/19 10:35 Basophils % 0.3 12/23/19 10:35 Absolute Neutrophils 4.64 k/cumm (1.2-6.7) 12/23/19 10:35 Absolute Lymphocytes 1.31 k/cumm (1.2-3.4) 12/23/19 10:35 Absolute Monocytes 0.66 k/cumm (0.11-0.7) 12/23/19 10:35 Absolute Eosinophils 0.19 k/cumm (0.0-0.7) 12/23/19 10:35 Absolute Basophils 0.02 k/cumm (0.0-0.2) 12/23/19 10:35 PT 13.4 sec (9.3-11.0) H 12/22/19 13:10 INR 1.3 (0.9-1.1) H 12/22/19 13:10 APTT 29.2 sec (21.0-31.4) 12/22/19 13:10 Sodium 139 mmol/L (136-145) 12/23/19 10:35 Potassium 3.7 mmol/L (3.5-5.1) 12/23/19 10:35 Chloride 104 mmol/L (98-107) 12/23/19 10:35 Carbon Dioxide 24.2 mmol/L (21.0-32.0) 12/23/19 10:35 Anion Gap 10.8 mmol/L (3-11) 12/23/19 10:35 BUN 12 mg/dL (7-18) 12/23/19 10:35 Creatinine 1.05 mg/dL (0.70-1.30) 12/23/19 10:35 Estimated GFR/1.73 m2 >= 60.00 (mL/min/1.73m2) 12/23/19 10:35 Glucose 149 mg/dL (74-106) H 12/23/19 10:35 Lactate 2.3 mmol/L (0.6-1.4) H* 12/22/19 13:10 Calcium 8.7 mg/dL (8.5-10.1) 12/23/19 10:35 Magnesium 1.8 mg/dL (1.8-2.4) 12/23/19 10:35 Total Bilirubin 0.5 mg/dL (0.2-1.0) 12/22/19 13:10 AST 21 U/L (15-37) 12/22/19 13:10 ALT 36 U/L (16-63) 12/22/19 13:10 Alkaline Phosphatase 49 U/L (46-116) 12/22/19 13:10 Troponin I < 0.05 ng/mL (<0.06) 12/22/19 13:10 Total Protein 7.6 g/dL (6.4-8.2) 12/22/19 13:10 Albumin 4.0 g/dL (3.4-5.0) 12/22/19 13:10 Urine Color Yellow (Yellow) 12/22/19 15:00 Urine Clarity Clear (Clear) 12/22/19 15:00 Urine pH 5.5 (5-8) 12/22/19 15:00 Ur Specific [place] 1.010 (1.005-1.025) 12/22/19 15:00 Urine Protein Negative mg/dL (Negative) 12/22/19 15:00 Urine Ketones Negative mg/dL (Negative) 12/22/19 15:00 Urine Blood Negative (Negative) 12/22/19 15:00 Urine Nitrite Negative (Negative) 12/22/19 15:00 Urine Bilirubin Negative (Negative) 12/22/19 15:00 Urine Urobilinogen 0.2 EU/dL (Up TO 0.2) 12/22/19 15:00 Ur Leukocyte Esterase Negative (Negative) 12/22/19 15:00 Urine Glucose Negative mg/dL (Negative) 12/22/19 15:00 COVID-19 PCR Negative (Negative) 12/22/19 20:35 Nasopharyn COVID-19 PCR Not Applicable 12/22/19 20:35 Ref Test Perform Site [facility] 12/22/19 20:35
[2019-12-23 20:35] VITALS: BP 140/92; PULSE 66; RESP 18; TEMP 36.2; O2SAT 94
[2019-12-23 20:53] VITALS: O2SAT 94
[2019-12-24 01:12] VITALS: BP 148/92; PULSE 61; RESP 17; TEMP 35.8; O2SAT 93
[2019-12-24 04:14] VITALS: O2SAT 93
[2019-12-24 07:04] LABS: Anion Gap 7.6 mmol/L (3-11); BUN 12 mg/dL (7-18); CO2 27.4 mmol/L (21.0-32.0); CREATININE 1.17 mg/dL (0.70-1.30); Calcium 8.9 mg/dL (8.5-10.1); Calculated LDL 14 mg/dL (<100); Chloride 104 mmol/L (98-107); Cholesterol 105 mg/dL (<200); Glucose 130 mg/dL (74-106); HDL Cholesterol 42 mg/dL (40-60); Magnesium 1.9 mg/dL (1.8-2.4); Potassium 3.8 mmol/L (3.5-5.1); Sodium 139 mmol/L (136-145); Triglyceride 245 mg/dL (<150)
[2019-12-24 08:46] VITALS: BP 150/90; PULSE 64; RESP 16; TEMP 36; O2SAT 93
[2019-12-24] MEDS: amLODIPine 5 MG TAB PO (08:49)
[2019-12-24] MEDS: Aspirin E.C. 81 MG TABEC PO (08:49)
[2019-12-24] MEDS: Metoprolol CR 100 MG TABCR PO (08:50)
[2019-12-24] MEDS: Rivaroxaban 10 MG TABLET 20 MG PO (08:50)
[2019-12-24] MEDS: Atorvastatin 10 MG TAB PO (08:50)
[2019-12-24] MEDS: Benazepril 10 MG TAB PO (08:50)
[2019-12-24] MEDS: Clopidogrel 75 MG TAB PO (08:50)
[2019-12-24 12:18] VITALS: BP 142/89; PULSE 68; RESP 18; TEMP 36.1; O2SAT 95
--- NOTE | 2019-12-24 14:13 | CMPROGNOTE_ITS ---
- If Service Date Differs Date of service: 12/24/19 Time of Service: 14:13 Care Management Progress Note S/O: Ankur remains on precautions due to potential Covid 19 exposure. CM spoke to Ankur and his daughter, Jodi on the phone, who both expressed concern that [facility]'t [facility] the [facility], which was his wish. CM explained that our goal is also to get him transferred to the [facility], which much time and energy was spent on yesterday. They both did not feel they were being updated adequately, and CM ex pressed that they would be kept informed today. CM asked Ankur if he would want to be transferred to a different facility if they have neurology and the ability to have a JASON today, which he agreed to. At 14:00, the provider reported that she was not able to locate a facility with this capability for today. CM initiated another transfer request to the [facility], at the patient's request, as he wants his treatment there. CM updated Jodi and Ankur regarding this, and will update them later this afternoon with any new information. CM will continue to follow. A: Ankur is a 69 year old male admitted to [facility] on 12/22/19 with an acute CVA. P: Anticipate Ankur will be transferred to the [facility] as soon as a bed becomes available. He will transport via ambulance when ready. CM will continue to updat e Ankur and his family, who are very involved in his care. CM will continue to follow.
[2019-12-24 17:11] VITALS: BP 137/91; PULSE 63; RESP 16; TEMP 36.3; O2SAT 93
--- NOTE | 2019-12-24 18:00 | W.PM.DS.N ---
Date of service: 12/24/19 Time of Service: 18:01 DS: Diagnosis Discharge Diagnosis (1) Acute cerebrovascular accident: Status: Acute (2) Occlusion of left posterior cerebral artery: Status: Acute (3) Protein S deficiency: Status: Chronic (4) HTN (hypertension): Status: Chronic Discharge Plan Disposition Patient Disposition: [facility] [place] Condition: Stable Discharge Details Chief Complaint: CVA/TIA Clinical Impression: Acute cerebrovascular accident Reason For Visit: TIA Admit Date/Time: 12/22/19 20:03 Admit Provider: Johnny Zavaleta Attending Provider: Johnny Zavaleta Primary Care Provider: Rios Montejo ED Provider: Angie Bey Hospital Course Hospital Course: Mr Negrete is a 69 year old male with PMHx of a recent acute CVA, known occlusion of left posterior cerebral artery, treated at the [facility], as well as CAD, h/o protein S deficiency with h/o DVT/PE, on aspirin, plavix, and xarelto, history of HTN, who was admitted to [facility] hospitalist service on 12/22/2019 with recurrence of same symptoms (right hemiparesis). His workup consisted of a negative noncontrast CT of the head, a CTA of the head and neck showing left proximal posterior cerebral artery occlusion or high grade stenosis, and an MRI of the brain showing multiple acute and subacute infarctions in the left posterior cerebral artery distribution. His symptoms resolved by the following morning. The patient has not had any arrhythmic events on telemetry and was maintained on the aspirin, plavix, and xarelto, while awaiting an initially expected transfer to the [facility] the following day. As there was no neurologist expected at the [facility] until next Friday, and we do not have one in house until next week (at least) also, alternative arrangements were attempted, but no beds were available at either [facility] or [facility]. The transfer to the [facility] was then reconsidered, as the patient should truly have an inpatient neurology evaluation given his recurrent strokes and history of protein S deficiency (could this be xarelto failure?) and be considered for a JASON. The patient is back to his baseline at this time, is hemodynamically stable, and is very interested in transfer to the [facility], where he was accepted by Dr Cook on the medical service. Care for patient as well as time to arrange transfer took 1 hour on the day of transfer. Home Meds and New Rx's Prescriptions: Continued metformin 500 mg tablet 500 mg PO BID RF: 0 metoprolol succinate 100 mg capsule,sprinkle,ER 24hr 100 mg PO DAILY RF: 0 Xarelto 20 mg tablet 20 mg PO DAILY RF: 0 aspirin [Aspirin Low Dose] 81 mg tablet,delayed release (DR/EC) 81 mg PO DAILY RF: 0 atorvastatin 10 mg Tablet 10 mg PO DAILY RF: 0 clopidogrel 75 mg Tablet 75 mg PO DAILY RF: 0 amlodipine-benazepril 5-10 mg Capsule 1 tab PO DAILY RF: 0 Discharge Instructions Referrals: Rios Montejo [Primary Care Provider] - Activity:: Activity as Tolerated Equipment/Supplies:: No Equipment Needed Diet:: Low Sodium Discharge Orders Discharge Orders: Discharge Order (Routine); Ordered 12/24/19 Ordered By: Jen Toribio DS: Summary Status at Discharge Functional status at discharge: independent ambulation Overall status at discharge: patient is back to baseline Mental Status: mental status grossly normal Speech and Movement: speech and movement normal Mood: congruent mood Affect: normal affect Exam Narrative Exam Narrative: General: Very pleasant middle-aged male, A&Ox3, laying comfortably in bed, no focal deficits HEENT: EOMI, MMM Heart: RRR, no m/r/g Lungs: CTAB Abdomen: soft, nontender, nondistended Extremities: no e/c/c BLE's Psych Mental Status: mental status grossly normal Speech and Movement: speech and movement normal Mood: congruent mood Affect: normal affect DS: Data Vitals/I&O Vitals and I&O: Vital Signs Temperature 36.3 C L 12/24/19 17:11 Temperature Source Tympanic 12/24/19 17:11 Pulse 63 12/24/19 17:11 Pulse Rhythm Regular 12/24/19 10:33 Respiratory Rate 16 12/24/19 17:11 Respiratory Effort Non-Labored 12/24/19 10:33 Respiratory Depth Normal 12/24/19 10:33 Respiratory Pattern Normal 12/24/19 10:33 Blood Pressure 137/91 H 12/24/19 17:11 Pulse Oximetry 93 L 12/24/19 17:11 Oxygen Delivery Method Room Air 12/24/19 17:11 Oxygen Flow Rate 0 12/24/19 17:11 Pain Level 0 12/24/19 17:11 Intake & Output 12/23/19 12/24/19 12/24/19 23:59 11:59 23:59 Intake Total 480 / 960 480 / 960 Balance 480 / 960 480 / 960 Intake: Oral 480 / 960 480 / 960 Other: Urine Color Yellow Urine Appearance Clear Clear Urine Odor None Voiding Methods Toilet Toilet Data Completed and Pending Completed studies during hospitalization [Text1]: CT brain without contrast: Normal cranial CT except for questionable mild cerebral atrophy. CXR; No evidence of acute process. CTA head/neck: Stenosis of right vertebral artery just at or above the foramen magnum, this is poorly visualized but may be a high-grade stenosis and is of uncertain acuity. Left proximal posterior cerebral artery occlusion or high-grade stenosis, also of uncertain age, left posterior cerebral artery appears to reconstitute through collateral branches. Brain MRI: Left posterior cerebral artery territory multiple acute or subacute infarctions as described above. Labs on day of discharge: Labs from last 24 hours 12/24/19 12/24/19 06:37 06:37 Sodium 139 Potassium 3.8 Chloride 104 Carbon Dioxide 27.4 Anion Gap 7.6 BUN 12 Creatinine 1.17 Estimated GFR/1.73 m2 >= 60.00 Glucose 130 H Hemoglobin A1c 6.0 H Calcium 8.9 Magnesium 1.9 Triglycerides 245 H Total Cholesterol 105 LDL Cholesterol, Calc 14 HDL Cholesterol 42 Preliminary micro results at discharge 12/22/19 14:30 Blood Culture - Preliminary Blood NO GROWTH 48 HOURS 12/22/19 13:50 Blood Culture - Preliminary Blood NO GROWTH 48 HOURS [facility] Medical History CAD (coronary artery disease) (Chronic) DVT (deep venous thrombosis) (Resolved) HTN (hypertension) (Chronic) Hypercholesterolemia (Chronic) Protein S deficiency (Chronic) Pulmonary embolism (Resolved) Surgical History History of heart artery stent (Chronic ~2002) Previous back surgery (Chronic) S/P cholecystectomy (Chronic) S/P small bowel resection (Chronic) Social History Smoking/Tobacco Use Status: Never Alcohol Intake: never Drug use: Never What type of physical activity do you participate in: none Do you feel safe at home: Yes Do you feel safe in your relationship?: Yes
== END 2019-12-24 18:25 | disposition short-term general hospital (02) | DRG 65 ==
LOC: ER 20:49 → MS 22:20
PROVIDERS: Admitting Provider General Practice; Emergency Provider Physician Assistant; PCP Internal Medicine; Visit Provider Internal Medicine
DX: I63.532 Cerebral infarction due to unspecified occlusion or stenosis of left posterior cerebral artery (principal); G81.91 Hemiplegia, unspecified affecting right dominant side; D68.59 Other primary thrombophilia; I65.01 Occlusion and stenosis of right vertebral artery; Z86.73 Personal history of transient ischemic attack (TIA), and cerebral infarction without residual deficits; I25.10 Atherosclerotic heart disease of native coronary artery without angina pectoris; Z86.711 Personal history of pulmonary embolism; Z79.01 Long term (current) use of anticoagulants; Z79.02 Long term (current) use of antithrombotics/antiplatelets; I10 Essential (primary) hypertension; E78.00 Pure hypercholesterolemia, unspecified
CPT/HCPCS: 36415; 70496; 70498; 80048; 80053; 80061; 87040; 99222; 99233; 99239; U0003; 70450; 70551; 71045; 81003; 83036; 83605; 83735; 84484; 85025; 85610; 85730; 99218; G0378; J3490

== ENCOUNTER 2020-11-26 15:54 | Outpatient (REF) | payer OTHER, SELFPAY ==
[2020-11-26 16:23] LABS: Prothrombin Time 12.5 sec (9.3-11.0)
[2020-11-26 16:24] LABS: INR 1.2 (0.9-1.1)
== END 2020-11-26 15:55 | disposition home or self-care (01) ==
LOC: LBN 15:54
PROVIDERS: PCP Internal Medicine; Visit Provider Internal Medicine
DX: I82.592 Chronic embolism and thrombosis of other specified deep vein of left lower extremity (principal); I66.3 Occlusion and stenosis of cerebellar arteries; Z79.01 Long term (current) use of anticoagulants
CPT/HCPCS: 85610